=== PATIENT | female | born 1955 | race Caucasian/White ===

== ENCOUNTER 2018-05-17 14:41 | Emergency (ER) | payer MEDICARE, OTHER ==
[2018-05-17 15:37] LABS: Basophils % (A) 0 %; Eosinophils # (A) 0.2 k/uL (0-0.7); Eosinophils % (A) 1 %; HCT 45.6 % (34.0-46.0); HGB 14.3 gm/dL (11.4-16.0); Lymphocytes # (A) 1.8 k/uL (1.0-4.8); Lymphocytes % (A) 14 %; MCH 29.8 pg (25.0-35.0); MCHC 31.4 g/dL (31.0-37.0); MCV 94.8 fL (80.0-100.0); Mean Platelet Volume 6.5; Monocytes # (A) 0.8 k/uL (0-1.0); Monocytes % (A) 6 %; Neutrophils # (A) 10.2 k/uL (1.3-7.7); Neutrophils % (A) 77 %; Platelet Count 368 k/uL (150-450); RBC 4.81 m/uL (3.80-5.40); RDW 13.9 % (11.5-15.5); WBC 13.2 k/uL (3.8-10.6)
--- NOTE | 2018-05-17 15:37 | ED ---
General Adult HPI - General Chief complaint: Abdominal Pain Stated complaint: side & back pain Time Seen by Provider: 05/17/18 15:02 Source: patient, RN notes reviewed Mode of arrival: ambulatory Limitations: no limitations - History of Present Illness Initial comments: Patient 62-year-old female with significant past medical history for COPD, hypertension, presented to the emergency room today with a chief complaint of bilateral lower rib pain over the last 3-4 days. Patient denies any injury or trauma to the areas. Denies any increased shortness of breath. She does admit that she began feeling some discomfort into the left side a few days ago now she feels that it's worse on the right. She states it's on the side of the rib area. She does not that it's worse with certain movements also she takes deep breath. Patient unsure if she got a blood thinner at home. Patient states she has not taken anything for pain other than Tylenol once the other day. She states she does not like to take pills. Patient denies any other associated symptoms or complaints. Patient denies any recent fever, chills, shortness of breath, chest pain, nausea or vomiting, numbness or tingling, dysuria or hematuria, constipation or diarrhea, headaches or visual changes, or any other complaints. - Related Data Home Medications Medication Instructions Recorded Confirmed Budesonide/Formoterol Fumarate 2 puff INHALATION RT-BID 05/17/18 05/17/18 [Symbicort 160-4.5 Mcg Inhaler] Diltiazem HCl [Cartia Xt] 240 mg PO DAILY 05/17/18 05/17/18 Ibuprofen [Motrin Ib] 200 - 400 mg PO Q6H PRN 05/17/18 05/17/18 Loratadine [Claritin] 10 mg PO DAILY 05/17/18 05/17/18 Ranitidine HCl [Zantac] 150 mg PO BID 05/17/18 05/17/18 Simvastin(Unknown Dose) 1 tab PO DAILY 05/17/18 05/17/18 Spironolactone [Aldactone] 25 mg PO DAILY 05/17/18 05/17/18 Tiotropium [place] [Spiriva] 1 cap INHALATION RT-DAILY 05/17/18 05/17/18 Allergies Allergy/AdvReac Type Severity Reaction Status Date / Time No Known Allergies Allergy Verified 05/17/18 15:43 Review of Systems ROS Statement: Those systems with pertinent positive or pertinent negative responses have been documented in the HPI. ROS Other: All systems not noted in ROS Statement are negative. Past Medical History Past Medical History: COPD, Hypertension History of Any Multi-Drug Resistant Organisms: MRSA MDRO Source:: Sputum Past Surgical History: No Surgical Hx Reported Past Psychological History: No Psychological Hx Reported Smoking Status: Former smoker Past Alcohol Use History: None Reported Past Drug Use History: None Reported General Exam - General Exam Comments Initial Comments: General: The patient is awake and alert, in no distress, and does not appear acutely ill. Eye: Pupils are equal, round and reactive to light, extra-ocular movements are intact. No nystagmus. There is normal conjunctiva bilaterally. No signs of icterus. Ears, nose, mouth and throat: There are moist mucous membranes and no oral lesions. Neck: The neck is supple, there is no tenderness or JVD. Cardiovascular: There is a regular rate and rhythm. No murmur, rub or gallop is appreciated. Respiratory: Lungs are clear to auscultation, respirations are non-labored, breath sounds are equal. No wheezes, stridor, rales, or rhonchi. Gastrointestinal: Soft, non-distended, non-tender abdomen without masses or organomegaly noted. There is no rebound or guarding present. No CVA tenderness. Musculoskeletal: Normal ROM. Patient does have tenderness to the bilateral lower ribs. No Step-off or deformity. Strength 5/5. Sensation intact. Pulses equal bilaterally 2+. Neurological: A&O x 3. CN II-XII intact, There are no obvious motor or sensory deficits. Coordination appears grossly intact. Speech is normal. Skin: Skin is warm and dry and no rashes or lesions are noted. Psychiatric: Cooperative, appropriate mood & affect, normal judgment. Limitations: no limitations Course Vital Signs 05/17/18 14:45 Temperature 98.9 F Pulse Rate 89 Respiratory 24 Rate Blood Pressure 139/84 O2 Sat by Pulse 92 L Oximetry EKG Findings - EKG Comments: EKG Findings:: EKG performed at 1537: Shows a sinus tachycardia 107 bpm. NM interval is 164. QRS is 78. QT/QTC 360/421. No acute changes Medical Decision Making - Medical Decision Making Patient's labs been reviewed. D-dimer was mildly elevated. CT of the chest was performed showing no evidence of a PE. Patient's CAT scan did reveal a old fracture of T11. Patient has been to a fall several months ago. Patient's pain to the lateral aspect of the left and right ribs is reproducible on palpation. It is felt to be musculoskeletal. Case discussed with her physician Dr. Cosme. At this time patient would like to discharge. Patient advised follow family doctor next 2 days. Advised return if any symptoms increase worsen. - Lab Data Result diagrams: 05/17/18 15:16 05/17/18 15:16 Lab Results 05/17/18 05/17/18 05/17/18 Range/Units 15:16 15:16 15:16 WBC 13.2 H (3.8-10.6) k/uL RBC 4.81 (3.80-5.40) m/uL Hgb 14.3 (11.4-16.0) gm/dL Hct 45.6 (34.0-46.0) % MCV 94.8 (80.0-100.0) fL MCH 29.8 (25.0-35.0) pg MCHC 31.4 (31.0-37.0) g/dL RDW 13.9 (11.5-15.5) % Plt Count 368 (150-450) k/uL Neutrophils % 77 % Lymphocytes % 14 % Monocytes % 6 % Eosinophils % 1 % Basophils % 0 % Neutrophils # 10.2 H (1.3-7.7) k/uL Lymphocytes # 1.8 (1.0-4.8) k/uL Monocytes # 0.8 (0-1.0) k/uL Eosinophils # 0.2 (0-0.7) k/uL Basophils # 0.0 (0-0.2) k/uL PT (9.0-12.0) sec INR (<1.2) APTT (22.0-30.0) sec D-Dimer (<0.60) mg/L FEU Sodium 140 (137-145) mmol/L Potassium 4.7 (3.5-5.1) mmol/L Chloride 102 (98-107) mmol/L Carbon Dioxide 23 (22-30) mmol/L Anion Gap 15 mmol/L BUN 18 H (7-17) mg/dL Creatinine 0.60 (0.52-1.04) mg/dL Est GFR (CKD-EPI)AfAm >90 (>60 ml/min/1.73 sqM) Est GFR (CKD-EPI)NonAf >90 (>60 ml/min/1.73 sqM) Glucose 97 (74-99) mg/dL Calcium 10.1 (8.4-10.2) mg/dL Total Bilirubin 0.4 (0.2-1.3) mg/dL AST 21 (14-36) U/L ALT 22 (9-52) U/L Alkaline Phosphatase 90 (38-126) U/L Total Creatine Kinase <20 L (30-135) U/L CK-MB (CK-2) <0.2 (0.0-2.4) ng/mL CK-MB (CK-2) Rel Index Troponin I <0.012 (0.000-0.034) ng/mL Total Protein 7.1 (6.3-8.2) g/dL Albumin 4.4 (3.5-5.0) g/dL 05/17/18 Range/Units 15:16 WBC (3.8-10.6) k/uL RBC (3.80-5.40) m/uL Hgb (11.4-16.0) gm/dL Hct (34.0-46.0) % MCV (80.0-100.0) fL MCH (25.0-35.0) pg MCHC (31.0-37.0) g/dL RDW (11.5-15.5) % Plt Count (150-450) k/uL Neutrophils % % Lymphocytes % % Monocytes % % Eosinophils % % Basophils % % Neutrophils # (1.3-7.7) k/uL Lymphocytes # (1.0-4.8) k/uL Monocytes # (0-1.0) k/uL Eosinophils # (0-0.7) k/uL Basophils # (0-0.2) k/uL PT 9.8 (9.0-12.0) sec INR 1.0 (<1.2) APTT 23.5 (22.0-30.0) sec D-Dimer 0.79 H (<0.60) mg/L FEU Sodium (137-145) mmol/L Potassium (3.5-5.1) mmol/L Chloride (98-107) mmol/L Carbon Dioxide (22-30) mmol/L Anion Gap mmol/L BUN (7-17) mg/dL Creatinine (0.52-1.04) mg/dL Est GFR (CKD-EPI)AfAm (>60 ml/min/1.73 sqM) Est GFR (CKD-EPI)NonAf (>60 ml/min/1.73 sqM) Glucose (74-99) mg/dL Calcium (8.4-10.2) mg/dL Total Bilirubin (0.2-1.3) mg/dL AST (14-36) U/L ALT (9-52) U/L Alkaline Phosphatase (38-126) U/L Total Creatine Kinase (30-135) U/L CK-MB (CK-2) (0.0-2.4) ng/mL CK-MB (CK-2) Rel Index Troponin I (0.000-0.034) ng/mL Total Protein (6.3-8.2) g/dL Albumin (3.5-5.0) g/dL Disposition Clinical Impression: Rib pain Disposition: HOME SELF-CARE Condition: Good Instructions: Rib Contusion (ED) Additional Instructions: Please use medication as discussed. Please follow-up with family doctor in the next 2 days of symptoms have not improved. Please return to emergency room if the symptoms increase or worsen or for any other concerns. Is patient prescribed a controlled substance at d/c from ED?: No Referrals: None,Stated [Primary Care Provider] - 1-2 days Time of Disposition: 18:20
[2018-05-17 15:54] LABS: ALT 22 U/L (9-52); AST 21 U/L (14-36); Albumin 4.4 g/dL (3.5-5.0); Alkaline Phosphatase 90 U/L (38-126); Anion Gap 15 mmol/L; Blood Urea Nitrogen 18 mg/dL (7-17); Calcium 10.1 mg/dL (8.4-10.2); Carbon Dioxide 23 mmol/L (22-30); Chloride 102 mmol/L (98-107); Glucose 97 mg/dL (74-99); Partial Thromboplastin Time 23.5 sec (22.0-30.0); Potassium 4.7 mmol/L (3.5-5.1); Prothrombin Time 9.8 sec (9.0-12.0); Sodium 140 mmol/L (137-145); Total Bilirubin 0.4 mg/dL (0.2-1.3); Total Protein 7.1 g/dL (6.3-8.2)
[2018-05-17 15:58] LABS: Creatine Kinase <20 U/L (30-135); D-Dimer 0.79 mg/L FEU (<0.60)
--- NOTE | 2018-05-17 16:05 | XR ---
EXAMINATION TYPE: XR chest 2V DATE OF EXAM: 05/17/2018 COMPARISON: None HISTORY: 62-year-old female with back and chest pain and cough, rib pain TECHNIQUE: PA and lateral views FINDINGS: Heart normal size. Atherosclerotic arch calcifications. Vasculature within normal limits. Strandy ate lectasis at the right base. No consolidation or pleural effusion. Anterior wedging of a vertebral body near the thoracolumbar junction. IMPRESSION: 1. Strandy right basilar atelectasis. No acute cardiopulmonary process. 2. Age indeterminate anterior wedging of a vertebral body near the thoracolumbar junction. Correlate for any localizing pain here to assess chronicity of this vertebral body fracture..
[2018-05-17 16:11] LABS: Creatine Kinase MB <0.2 ng/mL (0.0-2.4); Troponin I <0.012 ng/mL (0.000-0.034)
--- NOTE | 2018-05-17 17:23 | CT ---
EXAMINATION TYPE: CT angio chest DATE OF EXAM: 05/17/2018 5:12 PM COMPARISON: NONE HISTORY: Back pain and elevated D-dimer. CT DLP: 406 mGycm Automated exposure control for dose reduction was used. CONTRAST: CTA scan of the thorax is performed with IV Contrast, patient injected with 66ml mL of Isovue 370, pu lmonary embolism protocol. There are 3-D post processed images.. FINDINGS: There is mild coarsening of interstitial markings in the left lower lobe. There is no evidence of a p ulmonary mass. There is no pleural effusion. Heart size is normal. There is no pericardial effusion. There are no hilar masses. There is no mediastinal adenopathy. There is normal contrast opacification of the pulmonary arteries. There are no filling defects. Thora cic aorta is intact. There is no evidence of aneurysm or dissection. There is mild atheromatous kwon e in the thoracic aorta. The bony thorax is intact. There is 5% depression of the superior endplate o f T11 that appears old. IMPRESSION: NO EVIDENCE OF PULMONARY EMBOLISM.
[2018-05-17 18:49] VITALS: BP 132/69; PULSE 101; RESP 16; TEMP 97.9
== END 2018-05-17 18:59 | disposition home or self-care (01) ==
LOC: EC 14:41
DX: R07.81 Pleurodynia (principal); R10.9 Unspecified abdominal pain; M54.9 Dorsalgia, unspecified; J44.9 Chronic obstructive pulmonary disease, unspecified; I10 Essential (primary) hypertension; Z86.14 Personal history of Methicillin resistant Staphylococcus aureus infection; Z87.891 Personal history of nicotine dependence; Z79.51 Long term (current) use of inhaled steroids; Z79.899 Other long term (current) drug therapy; Z87.81 Personal history of (healed) traumatic fracture
CPT/HCPCS: 36415; 93005; 85379; 80053; 82550; 82553; 84484; 85025; 85610; 85730; 71046; 71275; 99284; Q9967

== ENCOUNTER 2020-04-04 13:07 | Emergency (ER) | payer MEDICARE, OTHER ==
[2020-04-04 13:13] VITALS: BP 137/72; PULSE 96; RESP 18; TEMP 98.6
[2020-04-04] MEDS ORDERED: LIDOCAINE 1% INJ 10MG/ML (20 ML MDV) SQ ONE (13:43)
--- NOTE | 2020-04-04 13:52 | ED ---
Wound/Laceration HPI - General Chief Complaint: Wound/Laceration Stated Complaint: cut finger Time Seen by Provider: 04/04/20 13:17 Source: patient Mode of arrival: ambulatory Limitations: no limitations - History of Present Illness Initial Comments: 64-year-old female presenting today for chief complaint of left index finger injury. Patient states that she cut her finger while using a knife to cut up chicken. Patient states it would not stop bleeding she felt pressure and presented to the emergency department for evaluation. Patient is no additional complaints she does a weakness or decreased range of motion. Patient states her tetanus up-to-date. Patient has no additional complaints. Patient is hypoxic on arrival however she does normally use home oxygen. Patient denies any new shortness of breath or chest pain. - Related Data Home Medications Medication Instructions Recorded Confirmed Budesonide/Formoterol Fumarate 2 puff INHALATION RT-BID 05/17/18 05/17/18 [Symbicort 160-4.5 Mcg Inhaler] Diltiazem HCl [Cartia Xt] 240 mg PO DAILY 05/17/18 05/17/18 Ibuprofen [Motrin Ib] 200 - 400 mg PO Q6H PRN 05/17/18 05/17/18 Loratadine [Claritin] 10 mg PO DAILY 05/17/18 05/17/18 Ranitidine HCl [Zantac] 150 mg PO BID 05/17/18 05/17/18 Simvastin(Unknown Dose) 1 tab PO DAILY 05/17/18 05/17/18 Spironolactone [Aldactone] 25 mg PO DAILY 05/17/18 05/17/18 Tiotropium [place] [Spiriva] 1 cap INHALATION RT-DAILY 05/17/18 05/17/18 Previous Rx's Medication Instructions Recorded Cephalexin [Keflex] 500 mg PO Q8HR 3 Days #9 cap 04/04/20 Allergies Allergy/AdvReac Type Severity Reaction Status Date / Time No Known Allergies Allergy Verified 04/04/20 13:14 Review of Systems ROS Statement: Those systems with pertinent positive or pertinent negative responses have been documented in the HPI. ROS Other: All systems not noted in ROS Statement are negative. Past Medical History Past Medical History: COPD, Hypertension History of Any Multi-Drug Resistant Organisms: MRSA Date of last positivie culture/infection: 2017 MDRO Source:: Sputum Past Surgical History: No Surgical Hx Reported Past Psychological History: No Psychological Hx Reported Smoking Status: Former smoker Past Alcohol Use History: None Reported Past Drug Use History: None Reported General Exam - General Exam Comments Initial Comments: General: The patient is awake and alert, in no distress, and does not appear acutely ill. Eye: Pupils are equal, round and reactive to light, extra-ocular movements are intact. No nystagmus. There is normal conjunctiva bilaterally. No signs of icterus. Ears, nose, mouth and throat: There are moist mucous membranes and no oral lesions. Neck: The neck is supple, there is no tenderness or JVD. Cardiovascular: There is a regular rate and rhythm. No murmur, rub or gallop is appreciated. Respiratory: Lungs are clear to auscultation, respirations are non-labored, breath sounds are equal. No wheezes, stridor, rales, or rhonchi. Gastrointestinal: [Soft, non-distended, non-tender abdomen without masses or organomegaly noted. There is no rebound or guarding present. No CVA tenderness. Bowel sounds are unremarkable.] Musculoskeletal: Normal ROM, no tenderness. Strength 5/5. Sensation intact. Pulses equal bilaterally 2+. Neurological: A&O x 3. CN II-XII intact, There are no obvious motor or sensory deficits. Coordination appears grossly intact. Speech is normal. Skin: Skin is warm and dry and no rashes or lesions are noted. Psychiatric: Cooperative, appropriate mood & affect, normal judgment. Limitations: no limitations Course Vital Signs 04/04/20 13:09 Temperature 98.6 F Pulse Rate 96 Respiratory 18 Rate Blood Pressure 137/72 O2 Sat by Pulse 90 L Oximetry Procedures - Laceration Laceration #1 Consent Obtained: verbal consent Indication: laceration Site: other (left index finger) Size (cm): 2 Description: irregular Depth: simple, single layer Anesthetic Used: lidocaine 1% Anesthesia Technique: local infiltration Amount (mls): 2 Pre-repair: wound explored, irrigated extensively, deep structures intact Type of Sutures: nylon Size of Sutures: 5-0 Number of Sutures: 5 Technique: simple, interrupted, running Patient Tolerated Procedure: well, no complications Medical Decision Making - Medical Decision Making 64-year-old feel presenting today for chief complaint of left index finger laceration. Repaired after cleansing with iodine and irrigation. No evidence of tendon injury and is on the pad of the left index finger. Patient is able to fully range with full strength at the MCP DIP and PIP joints. X-ray revealed no fracture or retained foreign body. Patient tetanus UTD in last 10 years. Patient does have history of hypoxia. with concern for poor perfusion of digit due to chronic condition pt will be prescribed 3 days of prophlyactic antibiotics. Signs of infection, timely removal and care discussed patient discharged appearing well after discussing the case with Dr. Kwan. Disposition Clinical Impression: Finger laceration, Laceration of left index finger Disposition: HOME SELF-CARE Condition: Good Instructions (If sedation given, give patient instructions): Care For Your Stitches (ED), Laceration (ED) Additional Instructions: Please use medication as discussed. Please return for suture removal in 7-10 days. Please monitor for signs of infection as discussed, redness, drainage, increasing pain. Take preventative antibiotics as discussed. Please return to emergency room if the symptoms increase or worsen or for any other concerns. Prescriptions: Cephalexin [Keflex] 500 mg PO Q8HR 3 Days #9 cap Is patient prescribed a controlled substance at d/c from ED?: No Referrals: Win Mosley MD [Primary Care Provider] - 1-2 days Time of Disposition: 14:25
--- NOTE | 2020-04-04 14:14 | XR ---
EXAMINATION TYPE: XR finger LT , 3 VIEWS DATE OF EXAM ORDERED: 04/04/2020 HISTORY: laceration. COMPARISON: None. FINDINGS: No fracture, dislocation or radiopaque foreign body is seen. IMPRESSION: NO ACUTE OSSEOUS LESION.
== END 2020-04-04 14:35 | disposition home or self-care (01) ==
LOC: EC 13:07
DX: S61.211A Laceration without foreign body of left index finger without damage to nail, initial encounter (principal); J44.9 Chronic obstructive pulmonary disease, unspecified; I10 Essential (primary) hypertension; Z79.51 Long term (current) use of inhaled steroids; Z79.899 Other long term (current) drug therapy; Z86.14 Personal history of Methicillin resistant Staphylococcus aureus infection; Z99.81 Dependence on supplemental oxygen; W26.0XXA Contact with knife, initial encounter; Y93.89 Activity, other specified
CPT/HCPCS: 73140; 99283; 12001; J2001

== ENCOUNTER 2020-07-27 17:02 | Inpatient (IN) | payer MEDICARE, OTHER ==
[2020-07-27] MEDS ORDERED: methylPREDNISolone SOD SUCCI 125 MG/2 ML VIAL IV STA (17:43)
[2020-07-27] MEDS ORDERED: ALBUTEROL NEBULIZED 2.5 MG/3 ML INHALATION STA (17:43)
[2020-07-27] MEDS ORDERED: MAGNESIUM SULFATE-D5W PMX 1 GM in DEXTROSE/WATER 1 100ML.BAG IVPB STA (17:43)
[2020-07-27] MEDS ORDERED: IPRATROPIUM-ALBUTEROL 3 ML NEB INHALATION STA (17:43)
[2020-07-27 17:59] LABS: Basophils # (A) 0.1 k/uL (0-0.2); Basophils % (A) 1 %; Eosinophils # (A) 0.1 k/uL (0-0.7); Eosinophils % (A) 1 %; HCT 46.2 % (34.0-46.0); HGB 14.5 gm/dL (11.4-16.0); Lymphocytes # (A) 1.4 k/uL (1.0-4.8); Lymphocytes % (A) 11 %; MCH 29.7 pg (25.0-35.0); MCHC 31.3 g/dL (31.0-37.0); MCV 94.9 fL (80.0-100.0); Mean Platelet Volume 7.1; Monocytes # (A) 0.9 k/uL (0-1.0); Monocytes % (A) 7 %; Neutrophils # (A) 9.9 k/uL (1.3-7.7); Neutrophils % (A) 78 %; Platelet Count 378 k/uL (150-450); RBC 4.87 m/uL (3.80-5.40); RDW 13.3 % (11.5-15.5); WBC 12.7 k/uL (3.8-10.6)
--- NOTE | 2020-07-27 18:09 | ED ---
SOB HPI - General Chief Complaint: Shortness of Breath Stated Complaint: COPD Time Seen by Provider: 07/27/20 17:25 Source: patient Mode of arrival: ambulatory Limitations: no limitations - History of Present Illness Initial Comments: 65-year-old female past medical history of COPD on 2 L home O2 at all times presents emergency room with reported shortness of breath. Reports that her breathing gets bad on her when the seasons change. She has had shortness of breath for the past week. Also admits to nonproductive cough. No fevers or chills. No sick contacts with similar symptoms. Denies any chest pain. No history of heart failure. Denies any lower extremity swelling. No calf pain. No recent travel. No history of DVT or PE. She sees Dr. Norris from pulmonology. Reports has been significant. Time since her last use of steroids. Patient has never required intubation. Denies any abdominal pain. No nausea or vomiting. Has been using her inhalers as directed. Does not use her rescue inhaler. No other alleviating, Perceptin or modifying factors - Related Data Home Medications Medication Instructions Recorded Confirmed Budesonide/Formoterol Fumarate 2 puff INHALATION RT-BID 05/17/18 07/27/20 [Symbicort 160-4.5 Mcg Inhaler] Tiotropium [place] [Spiriva] 1 cap INHALATION RT-DAILY 05/17/18 07/27/20 Albuterol Sulfate [Ventolin HFA] 2 puff INHALATION RT-Q4H PRN 07/27/20 07/27/20 Escitalopram [Lexapro] 10 mg PO DAILY 07/27/20 07/27/20 Previous Rx's Medication Instructions Recorded Metoprolol Succinate (ER) [Toprol 25 mg PO DAILY #30 tab.er.24h 07/30/20 XL] lisinopriL [Zestril] 5 mg PO DAILY #30 tab 07/30/20 predniSONE 0 mg PO DIRECTED #30 tab 07/30/20 Allergies Allergy/AdvReac Type Severity Reaction Status Date / Time No Known Allergies Allergy Verified 07/27/20 22:51 Review of Systems ROS Statement: Those systems with pertinent positive or pertinent negative responses have been documented in the HPI. ROS Other: All systems not noted in ROS Statement are negative. Past Medical History Past Medical History: COPD, Hypertension History of Any Multi-Drug Resistant Organisms: MRSA Date of last positivie culture/infection: 2018 MDRO Source:: Sputum Past Surgical History: No Surgical Hx Reported Past Psychological History: No Psychological Hx Reported Smoking Status: Current every day smoker Past Alcohol Use History: None Reported Past Drug Use History: None Reported General Exam Limitations: no limitations General appearance: alert, in no apparent distress Head exam: Present: atraumatic, normocephalic, normal inspection Eye exam: Present: normal appearance, PERRL, EOMI. Absent: scleral icterus, conjunctival injection, periorbital swelling ENT exam: Present: normal exam, mucous membranes moist Neck exam: Present: normal inspection. Absent: tenderness, meningismus, lymphadenopathy Respiratory exam: Present: wheezes, accessory muscle use, decreased breath sounds, other (mildly tachypneic). Absent: respiratory distress, rales, rhonchi, stridor Cardiovascular Exam: Present: normal rhythm, tachycardia, normal heart sounds. Absent: systolic murmur, diastolic murmur, rubs, gallop, clicks GI/Abdominal exam: Present: soft, normal bowel sounds. Absent: distended, tenderness, guarding, rebound, rigid Extremities exam: Present: normal inspection, full ROM, normal capillary refill. Absent: tenderness, pedal edema, joint swelling, calf tenderness Back exam: Present: normal inspection Neurological exam: Present: alert, oriented X3, CN II-XII intact Psychiatric exam: Present: normal affect, normal mood Skin exam: Present: warm, dry, intact, normal color. Absent: rash Course Vital Signs 07/27/20 07/27/20 07/27/20 17:26 18:01 18:23 Temperature 98.3 F Pulse Rate 101 H 100 102 H Pulse Rate [ Pulse Oximetery ] Respiratory 18 Rate Blood Pressure 111/66 Blood Pressure [Left Arm Sitting] O2 Sat by Pulse 88 L Oximetry 07/27/20 07/27/20 18:43 20:38 Temperature 98.5 F Pulse Rate 101 H Pulse Rate [ 100 Pulse Oximetery ] Respiratory 24 22 Rate Blood Pressure 113/71 Blood Pressure 119/78 [Left Arm Sitting] O2 Sat by Pulse 90 L 90 L Oximetry Medical Decision Making - Medical Decision Making Upon arrival patient was placed into room 5. Erythromycin physical exam is performed. Patient is requiring 3 L of oxygen at this time to maintain sats around 92%. Peripheral IV is established. Patient does have diminished breath sounds. She is given a DuoNeb breathing treatment followed by an albuterol breathing treatment. She is also given a gram of magnesium 125 mg of Solu- Medrol. Chest x-rays performed. Laboratory studies were conducted. Lab studies are remarkable for white count of 12.7. Sodium mildly low at 132. Troponin is 0.026. BNP elevated at 7000 180. Chest x-ray does demonstrate trace effusions a patchy right basilar atelectasis and/or infiltrate. Results of the patient. Blood cultures are obtained. Patient is given a dose of antibiotics. Also provided the patient with 40 g of Lasix. Recommended hospital admission. Patient agreed to this. Discussed case Dr. Wilkerson requested echo, pulmonology and cardiac consultation. The patient was transferred to the floor in stable condition - Lab Data Result diagrams: 07/28/20 06:21 07/29/20 06:33 Lab Results 07/27/20 07/27/20 07/27/20 Range/Units 17:45 17:45 17:45 WBC 12.7 H (3.8-10.6) k/uL RBC 4.87 (3.80-5.40) m/uL Hgb 14.5 (11.4-16.0) gm/dL Hct 46.2 H (34.0-46.0) % MCV 94.9 (80.0-100.0) fL MCH 29.7 (25.0-35.0) pg MCHC 31.3 (31.0-37.0) g/dL RDW 13.3 (11.5-15.5) % Plt Count 378 (150-450) k/uL Neutrophils % 78 % Lymphocytes % 11 % Monocytes % 7 % Eosinophils % 1 % Basophils % 1 % Neutrophils # 9.9 H (1.3-7.7) k/uL Lymphocytes # 1.4 (1.0-4.8) k/uL Monocytes # 0.9 (0-1.0) k/uL Eosinophils # 0.1 (0-0.7) k/uL Basophils # 0.1 (0-0.2) k/uL PT 10.3 (9.0-12.0) sec INR 1.0 (<1.2) APTT 25.0 (22.0-30.0) sec Sodium 132 L (137-145) mmol/L Potassium 4.9 (3.5-5.1) mmol/L Chloride 96 L (98-107) mmol/L Carbon Dioxide 21 L (22-30) mmol/L Anion Gap 15 mmol/L BUN 13 (7-17) mg/dL Creatinine 0.62 (0.52-1.04) mg/dL Est GFR (CKD-EPI)AfAm >90 (>60 ml/min/1.73 sqM) Est GFR (CKD-EPI)NonAf >90 (>60 ml/min/1.73 sqM) Glucose 94 (74-99) mg/dL Plasma Lactic Acid [place] (0.7-2.0) mmol/L Calcium 9.5 (8.4-10.2) mg/dL Total Bilirubin 0.7 (0.2-1.3) mg/dL AST 25 (14-36) U/L ALT 18 (4-34) U/L Alkaline Phosphatase 91 (38-126) U/L Troponin I (0.000-0.034) ng/mL NT-Pro-B Natriuret Pep pg/mL Total Protein 6.7 (6.3-8.2) g/dL Albumin 3.8 (3.5-5.0) g/dL 07/27/20 07/27/20 07/27/20 Range/Units 17:45 17:45 17:45 WBC (3.8-10.6) k/uL RBC (3.80-5.40) m/uL Hgb (11.4-16.0) gm/dL Hct (34.0-46.0) % MCV (80.0-100.0) fL MCH (25.0-35.0) pg MCHC (31.0-37.0) g/dL RDW (11.5-15.5) % Plt Count (150-450) k/uL Neutrophils % % Lymphocytes % % Monocytes % % Eosinophils % % Basophils % % Neutrophils # (1.3-7.7) k/uL Lymphocytes # (1.0-4.8) k/uL Monocytes # (0-1.0) k/uL Eosinophils # (0-0.7) k/uL Basophils # (0-0.2) k/uL PT (9.0-12.0) sec INR (<1.2) APTT (22.0-30.0) sec Sodium (137-145) mmol/L Potassium (3.5-5.1) mmol/L Chloride (98-107) mmol/L Carbon Dioxide (22-30) mmol/L Anion Gap mmol/L BUN (7-17) mg/dL Creatinine (0.52-1.04) mg/dL Est GFR (CKD-EPI)AfAm (>60 ml/min/1.73 sqM) Est GFR (CKD-EPI)NonAf (>60 ml/min/1.73 sqM) Glucose (74-99) mg/dL Plasma Lactic Acid [place] 1.5 (0.7-2.0) mmol/L Calcium (8.4-10.2) mg/dL Total Bilirubin (0.2-1.3) mg/dL AST (14-36) U/L ALT (4-34) U/L Alkaline Phosphatase (38-126) U/L Troponin I 0.026 (0.000-0.034) ng/mL NT-Pro-B Natriuret Pep 7180 pg/mL Total Protein (6.3-8.2) g/dL Albumin (3.5-5.0) g/dL - EKG Data EKG Comments: EKG deficit normal sinus rhythm with ventricular rate of 96. SC inteval 152. QRS 78. QTC of 432. No acute ST segment elevations or depressions concerning for ischemic changes. Significant baseline artifact Disposition Clinical Impression: Acute respiratory insufficiency, COPD (chronic obstructive pulmonary disease), CAP (community acquired pneumonia), Acute exacerbation of CHF (congestive heart failure) Disposition: ADMITTED IP TO THIS HOSP Condition: Good Is patient prescribed a controlled substance at d/c from ED?: No Decision to Admit Reason: Admit from EC Decision Date: 07/27/20 Decision Time: 20:06
[2020-07-27 18:29] LABS: Prothrombin Time 10.3 sec (9.0-12.0)
[2020-07-27 18:50] LABS: ALT 18 U/L (4-34); AST 25 U/L (14-36); African American GFR (CKD) >90 (>60 ml/min/1.73 sqM); Albumin 3.8 g/dL (3.5-5.0); Alkaline Phosphatase 91 U/L (38-126); Anion Gap 15 mmol/L; Blood Urea Nitrogen 13 mg/dL (7-17); Calcium 9.5 mg/dL (8.4-10.2); Carbon Dioxide 21 mmol/L (22-30); Chloride 96 mmol/L (98-107); Glucose 94 mg/dL (74-99); Non-African American GFR(CKD) >90 (>60 ml/min/1.73 sqM); Potassium 4.9 mmol/L (3.5-5.1); Sodium 132 mmol/L (137-145); Total Bilirubin 0.7 mg/dL (0.2-1.3); Total Protein 6.7 g/dL (6.3-8.2)
--- NOTE | 2020-07-27 19:01 | XR ---
EXAMINATION TYPE: XR chest 2V DATE OF EXAM: 07/27/2020 COMPARISON: 05/17/2018 HISTORY: 65-year-old female with shortness of breath, difficulty breathing TECHNIQUE: AP and lateral views FINDINGS: Heart is overall normal size. Atherosclerotic arch calcifications. Hyperinflation. Trace effusions. P atchy right basilar opacity. IMPRESSION: Trace effusions and patchy right basilar atelectasis and/or infiltrate. Correlate for underlying pneu monia or possible mild CHF as the etiology.
[2020-07-27] MEDS ORDERED: cefTRIAXone IN SWFI 1,000 MG/10 ML SYRINGE IVP STA (20:02)
[2020-07-27] MEDS ORDERED: AZITHROMYCIN 500 MG in SODIUM CHLORIDE 0.9% 250 ML IVPB STA (20:03)
[2020-07-27] MEDS ORDERED: FUROSEMIDE 10 MG/ML 4 ML VIAL IV STA (20:05)
[2020-07-27] MEDS ORDERED: NALOXONE 0.4 MG/ML 1 ML VIAL IV PRN (20:07)
[2020-07-27] MEDS ORDERED: IPRATROPIUM-ALBUTEROL 3 ML NEB INHALATION PRN (20:40)
[2020-07-28] MEDS ORDERED: IPRATROPIUM-ALBUTEROL 3 ML NEB INHALATION SCH
[2020-07-28] MEDS: methylPREDNISolone SOD SUCCI 40 MG/ML 1 ML VIAL IV SCH ×3 (00:27→17:48)
[2020-07-28 06:20] LABS: Glucose,Whole Blood 168 mg/dL (75-99)
[2020-07-28 07:17] LABS: Basophils % (A) 0 %; Eosinophils % (A) 0 %; HCT 45.3 % (34.0-46.0); HGB 14.1 gm/dL (11.4-16.0); Lymphocytes # (A) 0.4 k/uL (1.0-4.8); Lymphocytes % (A) 6 %; MCH 29.8 pg (25.0-35.0); MCHC 31.1 g/dL (31.0-37.0); Mean Platelet Volume 7.3; Monocytes # (A) 0.2 k/uL (0-1.0); Monocytes % (A) 3 %; Neutrophils # (A) 6.9 k/uL (1.3-7.7); Neutrophils % (A) 90 %; Platelet Count 338 k/uL (150-450); RBC 4.72 m/uL (3.80-5.40); RDW 13.2 % (11.5-15.5); WBC 7.6 k/uL (3.8-10.6)
[2020-07-28 07:36] LABS: Chloride 95 mmol/L (98-107); Glucose 168 mg/dL (74-99); Potassium 4.9 mmol/L (3.5-5.1)
[2020-07-28 07:37] LABS: African American GFR (CKD) >90 (>60 ml/min/1.73 sqM); Anion Gap 15 mmol/L; Blood Urea Nitrogen 21 mg/dL (7-17); Calcium 9.1 mg/dL (8.4-10.2); Carbon Dioxide 22 mmol/L (22-30); Non-African American GFR(CKD) >90 (>60 ml/min/1.73 sqM); Sodium 132 mmol/L (137-145)
[2020-07-28] MEDS: IPRATROPIUM-ALBUTEROL 3 ML NEB INHALATION SCH ×4 (08:22→20:20)
[2020-07-28] MEDS ORDERED: DILTIAZEM CD 240 MG CAP.ER.24H PO SCH (09:30)
--- NOTE | 2020-07-28 10:48 | ECHOF ---
Referral Reason:new onset heart failure MEASUREMENTS -------- HEIGHT: 157.5 cm WEIGHT: 56.2 kg BP: RVIDd: 2.4 cm (< 3.3) IVSd: 0.8 cm (0.6 - 1.1) LVIDd: 4.2 cm (3.9 - 5.3) LVPWd: 0.8 cm (0.6 - 1.1) IVSs: 1.1 cm LVIDs: 2.6 cm LVPWs: 1.2 cm LA Diam: 4.2 cm (2.7 - 3.8) LAESV Index (A-L): 19.57 ml/m Ao Diam: 2.6 cm (2.0 - 3.7) AV Cusp: 1.1 cm (1.5 - 2.6) MV EXCURSION: 16.920 mm (> 18.000) MV EF SLOPE: 119 mm/s (70 - 150) EPSS: 0.7 cm MV E José: 0.56 m/s MV DecT: 203 ms MV A José: 0.80 m/s MV E/A Ratio: 0.70 AV maxP.61 mmHg AV meanP.56 mmHg RAP: 10.00 mmHg RVSP: 73.06 mmHg FINDINGS -------- Undetermined rhythm. This was a technically good study. Left ventricular wall thickness is normal. There is moderate global hypokinesis of LV . Overall l eft ventricular systolic function is severely impaired with, an EF between 25 - 30 %. Mid anterior LV wall motion is hypokinetic. Mid lateral LV wall motion is hypokinetic. Mid inferior LV wall motion is hypokinetic. Apical anterior LV wall motion is normal. Apical lateral LV wall motion i s normal. Apical inferior LV wall motion is hypokinetic. Apical septum LV wall motion is hypokin etic. The right ventricle is normal in size. The left atrium is mildly dilated. The right atrial size is normal. There is mild aortic stenosis present. Peak/mean gradient across the Aortic Valve is 15.61mmHg / 7. 56mmHg. Mild mitral regurgitation is present. Mild tricuspid regurgitation present. There is moderate to severe pulmonary hypertension. There is no pulmonic regurgitation present. The aortic root size is normal. There is no pericardial effusion. CONCLUSIONS -------- 1. Left ventricular wall thickness is normal. 2. There is moderate global hypokinesis of LV . 3. Overall left ventricular systolic function is severely impaired with, an EF between 25 - 30 %. 4. Mid anterior LV wall motion is hypokinetic. 5. Mid lateral LV wall motion is hypokinetic. 6. Mid inferior LV wall motion is hypokinetic. 7. Apical anterior LV wall motion is normal. 8. Apical lateral LV wall motion is normal. 9. Apical inferior LV wall motion is hypokinetic. 10. Apical septum LV wall motion is hypokinetic. 11. The right ventricle is normal in size. 12. The left atrium is mildly dilated. 13. The right atrial size is normal. 14. There is mild aortic stenosis present. 15. Peak/mean gradient across the Aortic Valve is 15.61mmHg / 7.56mmHg. 16. Mild mitral regurgitation is present. 17. Mild tricuspid regurgitation present. 18. There is moderate to severe pulmonary hypertension. 19. There is no pericardial effusion. ACTIVITY SPECIALIST: Indy Sorto RDCS
--- NOTE | 2020-07-28 11:47 | P.HPIM ---
History of Present Illness H&P Date: 07/28/20 HISTORY OF PRESENT ILLNESS This is a 65-year-old female patient of Dr. Mosley and Dr. Norris with past medical history of COPD, chronic hypoxic respiratory failure with home O2, hypertension, remote history of tobacco use and dependence. Patient complains of increasing shortness of breath for the past week with nonproductive cough. She denies having any fever or chills. She denies having any chest pain. No lower extremity edema. No recent travel. She states her last hospitalization for COPD exacerbation was about one year ago. Patient presented to [facility] emergency center. Patient was afebrile, heart rate 101, blood pressure 111/66, pulse ox 88% on 2 L nasal cannula. Blood work revealed WBC 12.7, hemoglobin 14.5. Sodium 132, potassium 4.9, chloride 96, CO2 21, BUN 13 and creatinine 0.62, blood sugar 94. Liver function tests were normal, lactic acid 1.5, troponin 0.026 and proBNP 7180. EKG was a sinus rhythm at rate of [address] changes. Chest x-ray reveals trace effusions and patchy right basilar atelectasis and/or infiltrate. Correlate for underlying pneumonia or possible mild heart failure. Echocardio gram reveals moderate global hypokinesia of the LV, EF 25-30%, mild aortic stenosis with gradient of 15.61 mmHg, mild mitral regurgitation, mild tricuspid regurgitation, moderate to severe pulmonary hypertension. Repeat troponin 0.019 and 0.015. Patient admitted to the cardiac stepdown unit and consult requested with pulmonary medicine and cardiology. REVIEW OF SYSTEMS Constitutional: No fever, no chills, no night sweats. No weight change. Reports weakness, fatigue or lethargy. No daytime sleepiness. EENT: No headache. No blurred vision or double vision, no loss of vision. No loss of Hearing, no ringing in the ears, no dizziness. No nasal drainage or congestion. No epistaxis. No sore throat. Lungs: Reports shortness of breath, reports cough, no sputum production. Reports wheezing. Dyspnea with exertion. Cardiovascular: No chest pain, no lower extremity edema. No palpitations. No paroxysmal nocturnal dyspnea. Reports orthopnea. No lightheadedness or dizziness. No syncopal episodes. Abdominal: No abdominal pain. No nausea, vomiting. No diarrhea. No constipation. No bloody or tarry stools.. No loss of appetite. Genitourinary: No dysuria, increased frequency, urgency. No urinary retention. Musculoskeletal: No myalgias. Reports muscle weakness, no gait dysfunction, no frequent falls. No back pain. No neck pain. Integumentary: No wounds, no lesions. No rash or pruritus. No unusual bruising. No change in hair or nails. Neurologic: No aphasia. No facial droop. No change in mentation. No head injury. No headache. No paralysis. No paresthesia. Psychiatric: No depression. No anxiety. No mood swings. Endocrine: No abnormal blood sugars. No weight change. No excessive sweating or thirst. No cold intolerance. SOCIAL HISTORY The patient was a smoker one and half to 2 packs per day for 20 years and quit 25 years ago. She denies any alcohol use, marijuana use or illicit drug use. She is single and lives alone. She does not have a CPAP. She has a nebulizer and oxygen home. FAMILY HISTORY Mother in her 60s of unknown cause. Father in his 60s as well with atherosclerotic heart disease. Patient has 3 brothers and 2 have passed from alcohol and drug issues. No sisters. Patient's 4 children with no major medical problems. PHYSICAL EXAMINATION Gen: This is an 65-year-old female. Patient's last hematocrit. Dis tress. HEENT: Head is atraumatic, normocephalic. Pupils equal, round. Sclerae is anicteric. NECK: Supple. No JVD. No lymphadenopathy. No thyromegaly. LUNGS: Diminished bilaterally with expiratory wheezesi. No intercostal retractions. HEART: Regular rate and rhythm. No murmur. ABDOMEN: Soft. Bowel sounds are present. No masses. No tenderness. EXTREMITIES: No pedal edema. No calf tenderness. Dorsalis pedis +2 bilaterally. NEUROLOGICAL: Patient is awake, alert and oriented x3. Cranial nerves 2 through 12 are grossly intact. ASSESSMENT AND PLAN 1. Acute on chronic hypoxic respiratory failure secondary to a combination of acute exacerbation of COPD and acute systolic heart failure, new onset. Consults with cardiology and pulmonary medicine. 2. Acute exacerbation of COPD. Continue DuoNeb treatments 4 times daily and every 2 hours as needed, Symbicort twice daily, Solu-Medrol 40 mg IV every 8 hours. Patient did receive one dose each of Zithromax and ceftriaxone. Consult with pulmonary medicine. 3. Acute systolic heart failure. Patient received 1 dose of IV Lasix 40 mg in the ER. Monitor I&O, daily weights, electrolytes and renal function. 4. Hypertension. Continue Cardizem CD 240 mg daily. 5. Hypomagnesemia. Status post replacement. 6. Chronic hypoxic respiratory failure on home O2 at 2 L nasal cannula. 7. Recurrent depression. Continue Lexapro 10 mg daily. 8. DVT prophylaxis. Heparin subcu. 9. GI prophylaxis. Protonix. Patient will be admitted to the hospital for a minimum of 2 night stay. Discharge plan: home Impression and plan of care have been directed as dictated by the signing physician. Adriana Mobley nurse practitioner acting as scribe for signing physician. Past Medical History Past Medical History: COPD, Hypertension History of Any Multi-Drug Resistant Organisms: MRSA Date of last positivie culture/infection: 2017 MDRO Source:: Sputum Past Surgical History: No Surgical Hx Reported Past Psychological History: No Psychological Hx Reported Smoking Status: Current every day smoker Past Alcohol Use History: None Reported Past Drug Use History: None Reported Medications and Allergies Home Medications Medication Instructions Recorded Confirmed Type Budesonide/Formoterol Fumarate 2 puff INHALATION RT-BID 05/17/18 07/27/20 History [Symbicort 160-4.5 Mcg Inhaler] Diltiazem HCl [Cartia Xt] 240 mg PO DAILY 05/17/18 07/27/20 History Tiotropium [place] [Spiriva] 1 cap INHALATION RT-DAILY 05/17/18 07/27/20 History Albuterol Sulfate [Ventolin HFA] 2 puff INHALATION RT-Q4H PRN 07/27/20 07/27/20 History Escitalopram [Lexapro] 10 mg PO DAILY 07/27/20 07/27/20 History Allergies Allergy/AdvReac Type Severity Reaction Status Date / Time No Known Allergies Allergy Verified 07/27/20 22:51 Physical Exam Vitals: Vital Signs Temp Pulse Pulse Resp BP BP Pulse Ox 07/28/20 08:31 100 07/28/20 08:24 98 07/28/20 08:00 96 16 132/72 93 L 07/28/20 04:00 98.1 F 90 22 124/82 92 L 07/28/20 00:00 98.2 F 92 22 108/76 93 L 07/27/20 20:38 98.5 F 100 22 119/78 90 L 07/27/20 18:43 101 H 24 113/71 90 L 07/27/20 18:23 102 H 07/27/20 18:01 100 07/27/20 17:26 98.3 F 101 H 18 111/66 88 L Intake and Output 07/27/20 07/28/20 07/28/20 22:59 06:59 14:59 Intake Total 370 0 Balance 370 0 Intake: Intake, IV Titration 250 Amount Azithromycin 500 mg In 250 Sodium Chloride 0.9% 250 ml @ 250 mls/hr IVPB ONCE STA Rx#:[id number] Oral 120 0 Other: Voiding Method Toilet # Voids 2 Weight 57.153 kg 56.4 kg Results CBC & Chem 7: 07/28/20 06:21 07/28/20 06:21 Labs: Abnormal Lab Results - Last 24 Hours (Table) 07/27/20 07/27/20 07/28/20 Range/Units 17:45 17:45 06:18 WBC 12.7 H (3.8-10.6) k/uL Hct 46.2 H (34.0-46.0) % Neutrophils # 9.9 H (1.3-7.7) k/uL Lymphocytes # (1.0-4.8) k/uL Sodium 132 L (137-145) mmol/L Chloride 96 L (98-107) mmol/L Carbon Dioxide 21 L (22-30) mmol/L BUN (7-17) mg/dL Glucose (74-99) mg/dL POC Glucose (mg/dL) 168 H (75-99) mg/dL 07/28/20 07/28/20 Range/Units 06:21 06:21 WBC (3.8-10.6) k/uL Hct (34.0-46.0) % Neutrophils # (1.3-7.7) k/uL Lymphocytes # 0.4 L (1.0-4.8) k/uL Sodium 132 L (137-145) mmol/L Chloride 95 L (98-107) mmol/L Carbon Dioxide (22-30) mmol/L BUN 21 H (7-17) mg/dL Glucose 168 H (74-99) mg/dL POC Glucose (mg/dL) (75-99) mg/dL Thrombosis Risk Factor Assmnt - Choose All That Apply Each Factor Represents 1 point: Abnormal pulmonary function (COPD), Serious lung disease incl. pneumonia (< 1month) Other Risk Factors: Yes Each Risk Factor Represents 2 Points: Age 61-74 years Other congenital or acquired thrombophilia - If yes, enter type in comment: No Thrombosis Risk Factor Assessment Total Risk Factor Score: 4 Thrombosis Risk Factor Assessment Level: Moderate Risk
--- NOTE | 2020-07-28 11:50 | P.CRDCN ---
History of Present Illness Consult date: 07/28/20 History of present illness: CHIEF COMPLAINT: Heart failure HISTORY OF PRESENT ILLNESS: 65-year-old female with a history of COPD and hypertension who presented to the emergency room secondary to shortness of breath. 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 Patient reports having shortness of breath over the last 2-3 days and states "My COPD is acting up". Patient denies chest pain or pressure. She denies any swelling in her lower extremities. Patient reports a history of palpitations many years ago and states "they were never able to figure out why I was having it". Patient reports home O2 use. She states she quit smoking 25 years ago after smoking 1-1/2-2 packs a day for 20 years. She reports she had a stress test a few years ago when she was living in [place] and believes it was negative. DIAGNOSTICS: EKG reveals sinus rhythm. Heart rate 96 Chest xray trace effusions and patchy right basilar atelectasis and/or infiltrate. Correlate for underlying pneumonia or possible mild CHF Laboratory data: WBC 7.6. Hemoglobin 14.1. Platelet count 338. Sodium 132. Potassium 4.9. BUN 21. Creatinine 0.62. BNP 7180. Troponin 0.026. 0.019. 0.015. Current home cardiac medications include Cardizem 240 mg daily REVIEW OF SYSTEMS: CONSTITUTIONAL: Denies fever or chills. HEENT: Denies blurred vision, vision changes, or eye pain. Denies hemoptysis CARDIOVASCULAR: Denies chest pain, orthopnea, PND. Reports history of palpitations RESPIRATORY: Reports shortness of breath. GASTROINTESTINAL: Denies abdominal pain. Denies nausea or vomiting. HEMATOLOGIC: Denies bleeding disorders. GENITOURINARY: Denies any blood in urine. SKIN: Denies pruitis. Denies rash. PHYSICAL EXAM: VITAL SIGNS: Reviewed. GENERAL: Well-developed in no acute distress. HEENT: Head is normocephalic. Pupils are equal, round. Sclerae anicteric. Mucous membranes of the mouth are moist. Neck supple. No JVD or thyromegaly LUNGS: Respirations even and unlabored. Lungs essentially clear to auscultation bilaterally. HEART: Regular rate and rhythm. S1 and S2 heard. + systolic murmur ABDOMEN: Soft. Nontender. EXTREMITIES: Normal range of motion. No clubbing or cyanosis. Peripheral pulses intact. No lower extremity edema NEUROLOGIC: Awake and alert. Oriented x 3. ASSESSMENT: Acute exacerbation of COPD Possible congestive heart failure, BNP 7180, clinically appears euvolemic Hypertension History of palpitations History of nicotine dependence PLAN: Hold off on any lasix at this time as patient appears euvolemic Obtain 2D echo to assess cardiac structure and function Further recommendations pending patient course Nurse practitioner note has been reviewed by physician. Signing provider agrees with the documented findings, assessment, and plan of care. Past Medical History Past Medical History: COPD, Hypertension History of Any Multi-Drug Resistant Organisms: MRSA Date of last positivie culture/infection: 2017 MDRO Source:: Sputum Past Surgical History: No Surgical Hx Reported Past Psychological History: No Psychological Hx Reported Smoking Status: Current every day smoker Past Alcohol Use History: None Reported Past Drug Use History: None Reported Medications and Allergies Home Medications Medication Instructions Recorded Confirmed Type Budesonide/Formoterol Fumarate 2 puff INHALATION RT-BID 05/17/18 07/27/20 History [Symbicort 160-4.5 Mcg Inhaler] Diltiazem HCl [Cartia Xt] 240 mg PO DAILY 05/17/18 07/27/20 History Tiotropium [place] [Spiriva] 1 cap INHALATION RT-DAILY 05/17/18 07/27/20 History Albuterol Sulfate [Ventolin HFA] 2 puff INHALATION RT-Q4H PRN 07/27/20 07/27/20 History Escitalopram [Lexapro] 10 mg PO DAILY 07/27/20 07/27/20 History Allergies Allergy/AdvReac Type Severity Reaction Status Date / Time No Known Allergies Allergy Verified 07/27/20 22:51 Physical Exam Vitals: Vital Signs Temp Pulse Pulse Resp BP BP Pulse Ox 07/28/20 11:26 96 07/28/20 08:31 100 07/28/20 08:24 98 07/28/20 08:00 96 16 132/72 93 L 07/28/20 04:00 98.1 F 90 22 124/82 92 L 07/28/20 00:00 98.2 F 92 22 108/76 93 L 07/27/20 20:38 98.5 F 100 22 119/78 90 L 07/27/20 18:43 101 H 24 113/71 90 L 07/27/20 18:23 102 H 07/27/20 18:01 100 07/27/20 17:26 98.3 F 101 H 18 111/66 88 L Intake and Output 07/27/20 07/28/20 07/28/20 22:59 06:59 14:59 Intake Total 370 0 Balance 370 0 Intake: Intake, IV Titration 250 Amount Azithromycin 500 mg In 250 Sodium Chloride 0.9% 250 ml @ 250 mls/hr IVPB ONCE STA Rx#:[id number] Oral 120 0 Other: Voiding Method Toilet # Voids 2 Weight 57.153 kg 56.4 kg Results 07/28/20 06:21 07/28/20 06:21 Cardiac Enzymes 07/27/20 07/27/20 07/27/20 Range/Units 17:45 17:45 22:26 AST 25 (14-36) U/L Troponin I 0.026 0.019 (0.000-0.034) ng/mL 07/28/20 Range/Units 00:21 AST (14-36) U/L Troponin I 0.015 (0.000-0.034) ng/mL Coagulation 07/27/20 Range/Units 17:45 PT 10.3 (9.0-12.0) sec APTT 25.0 (22.0-30.0) sec CBC 07/27/20 07/28/20 Range/Units 17:45 06:21 WBC 12.7 H 7.6 (3.8-10.6) k/uL RBC 4.87 4.72 (3.80-5.40) m/uL Hgb 14.5 14.1 (11.4-16.0) gm/dL Hct 46.2 H 45.3 (34.0-46.0) % Plt Count 378 338 (150-450) k/uL Comprehensive Metabolic Panel 07/27/20 07/28/20 Range/Units 17:45 06:21 Sodium 132 L 132 L (137-145) mmol/L Potassium 4.9 4.9 (3.5-5.1) mmol/L Chloride 96 L 95 L (98-107) mmol/L Carbon Dioxide 21 L 22 (22-30) mmol/L BUN 13 21 H (7-17) mg/dL Creatinine 0.62 0.62 (0.52-1.04) mg/dL Glucose 94 168 H (74-99) mg/dL Calcium 9.5 9.1 (8.4-10.2) mg/dL AST 25 (14-36) U/L ALT 18 (4-34) U/L Alkaline Phosphatase 91 (38-126) U/L Total Protein 6.7 (6.3-8.2) g/dL Albumin 3.8 (3.5-5.0) g/dL Current Medications Generic Name Dose Route Start Last Admin Trade Name Freq PRN Reason Stop Dose Admin Albuterol/Ipratropium 3 ml 07/28/20 08:00 07/28/20 11:25 Duoneb 0.5 Mg-3 Mg/3 Ml Soln INHALATION 3 ml RT-QID KODY Administration Albuterol/Ipratropium 3 ml 07/27/20 20:40 Duoneb 0.5 Mg-3 Mg/3 Ml Soln INHALATION RT-Q2H PRN Shortness Of Breath Or Wheezing Budesonide/Formoterol Fumarate 2 puff 07/28/20 20:00 Symbicort 160-4.5 Mcg Inhaler INHALATION RT-BID [facility] Diltiazem HCl 240 mg 07/28/20 09:30 Cardizem Cd PO DAILY [facility] Escitalopram Oxalate 10 mg 07/28/20 09:30 Lexapro PO DAILY [facility] Insulin Aspart 0 unit 07/28/20 12:30 Novolog SQ ACHS [facility] Protocol Methylprednisolone Sodium Succinate 40 mg 07/28/20 00:00 07/28/20 08:25 Solu-Medrol IV 40 mg Q8HR KODY Administration Naloxone HCl 0.2 mg 07/27/20 20:07 Narcan IV Q2M PRN Opioid Reversal Intake and Output 07/27/20 07/28/20 07/28/20 22:59 06:59 14:59 Intake Total 370 0 Balance 370 0 Intake: Intake, IV Titration 250 Amount Azithromycin 500 mg In 250 Sodium Chloride 0.9% 250 ml @ 250 mls/hr IVPB ONCE STA Rx#:[id number] Oral 120 0 Other: Voiding Method Toilet # Voids 2 Weight 57.153 kg 56.4 kg 07/28/20 06:21 07/28/20 06:21
[2020-07-28 12:17] LABS: Glucose,Whole Blood 144 mg/dL (75-99)
[2020-07-28] MEDS: INSULIN ASPART (NovoLOG) 100 UNIT/ML VIAL SQ SCH ×3 (13:12→21:48)
[2020-07-28] MEDS: ESCITALOPRAM 10 MG TAB PO SCH (13:13)
--- NOTE | 2020-07-28 17:31 | CONS ---
CONSULTATION PULMONARY/CRITICAL CARE CONSULTATION: DATE OF SERVICE: 07/28/2020 REASON FOR CONSULTATION: Shortness of breath This is a 65-year-old female with a history of underlying COPD. She apparently recently started seeing Dr. Mosley as a primary and seen my partner Dr. Norris for her lungs. She tells me, that she has 20% lung function left. She is on home O2 at 2 L/minute 12/06. She apparently presents to the emergency room complaining of shortness of breath. The shortness of breath has been going on for a couple days and getting worse. She relates that it to the change in seasons. In addition, she admits to a cough which is mostly nonproductive. She denies any wheezing. She denies any chest tightness or chest pain. She also denies any fever or chills. The patient denies a history of underlying cardiac disease. Interestingly, her chest x-ray shows bilateral small effusions and she is currently being evaluated by Cardiology for potential CHF. From the pulmonary standpoint, she looks very stable. The patient apparently is feeling much better today than she did when she first came in. She has been using her medications as prescribed, which include Spiriva Handy haler, Symbicort, and albuterol. Other medications include Cardia XT and Lexapro. ALLERGIES: Denied. MEDICAL PROBLEM LIST: Includes hypertension and COPD. As mentioned, her COPD is apparently quite severe. She states she has 20% lung function left. She also has a prior history of MRSA infection in her sputum. SURGICAL HISTORY: Denied. SOCIAL HISTORY: Positive for ongoing tobacco use. She apparently states she only smoked for 17 or 20 years, but it seems unlikely given how bad her lung disease is. She denies any alcohol use or illicit drug use. FAMILY HISTORY: Noncontributory. REVIEW OF SYSTEMS: CONSTITUTIONAL: Negative. NEUROLOGIC: Negative. HEENT: Negative. CARDIOVASCULAR: Negative. PULMONARY: Shortness of breath, nonproductive cough. GI: Negative. : Negative. RHEUMATOLOGIC: Negative. IMMUNOLOGIC: Negative. ENDOCRINOLOGIC: Negative. DERMATOLOGIC: Negative. Current vital signs are reviewed. They include a temperature which is 98.1, heart rate which is 96, respiratory rate which is 16, a blood pressure which is 132/72 and a mean of 92 with saturations 93%-94% on 3 L. Appears in no acute distress. Sitting at the bedside. Does not have any evidence of conversational dyspnea, use of accessory muscles or audible wheezing. HEENT: Examination is grossly unremarkable. NECK: Supple. Full range of motion. No adenopathy. Neck veins are flat. CARDIOVASCULAR: Examination reveals regular rhythm and rate. Heart rate about 90 beats per minute. S1, S2 normal. No murmur. Heart sounds are distant. LUNGS: Reveal severely diminished breath sounds throughout. I do not hear much in way of wheezes, rhonchi, or crackles. Slight prolongation on forced maneuver. ABDOMEN: Soft, bowel sounds are heard. EXTREMITIES: Intact. No edema. SKIN: Without rash. NEUROLOGIC: Examination is brief but nonfocal. LAB DATA: Reviewed. White count 7.6, hemoglobin 14.1, hematocrit 45.3, platelet count 338,000. PT, INR and PTT all normal, sodium 132, potassium 4.9, chloride 95, CO2 is 22, anion gap is 15. BUN and creatinine were 21 and 0.62. Troponins are 0.026, 0.019, 0.015. Her N terminal proBNP was elevated at 7180. Microbiology is negative or pending. Chest x-ray shows findings that in my opinion are consistent with mild fluid overload with small bilateral pleural effusions. Echocardiogram reveals an ejection fraction between 25%-30%. There is moderate global hypokinesis. There is mild aortic stenosis, mild mitral regurgitation, mild tricuspid regurgitation and moderate to severe pulmonary hypertension without pericardial effusion. ASSESSMENT: 1. Shortness of breath, likely multifactorial, in part related to underlying severe COPD as well as heart failure with reduced ejection fraction (HFREF). 2. Severe COPD with 20% lung function remaining according to the patient. 3. History of long-standing hypertension. 4. Prior history of MRSA pulmonary infection. 5. Ongoing tobacco use with nicotine addiction. 6. Valvular heart disease. 7. Global hypokinesia with an ejection fraction between 20%-25%. PLAN: The patient from the pulmonary standpoint, is doing well. Her medications are reviewed. They are appropriate. Additional recommendations and suggestions are forthcoming. She is currently on Symbicort, Solu-Medrol, and albuterol/Atrovent updrafts. Will await Cardiology input. No additional recommendations are made. The patient will need to follow up with Dr. Mosley and my partner Dr. Timmy once discharged. Additional recommendations and suggestions are forthcoming. MMODL / IJN: [id number] /
[2020-07-28] MEDS: SYMBICORT 160-4.5 MCG INHALER INHALATION SCH (20:20)
[2020-07-28 20:38] LABS: Glucose,Whole Blood 207 mg/dL (75-99)
[2020-07-28] MEDS: HEPARIN SODIUM,PORCINE 5,000 UNIT/ML 1 ML VIAL SQ SCH (21:48)
[2020-07-29] MEDS: methylPREDNISolone SOD SUCCI 40 MG/ML 1 ML VIAL IV SCH ×3 (00:41→16:39)
[2020-07-29 06:13] LABS: Glucose,Whole Blood 202 mg/dL (75-99)
[2020-07-29] MEDS: PANTOPRAZOLE 40 MG TABLET PO SCH (06:31)
[2020-07-29] MEDS: INSULIN ASPART (NovoLOG) 100 UNIT/ML VIAL SQ SCH ×4 (06:31→20:49)
[2020-07-29 07:50] LABS: African American GFR (CKD) >90 (>60 ml/min/1.73 sqM); Anion Gap 9 mmol/L; Blood Urea Nitrogen 22 mg/dL (7-17); Calcium 9.2 mg/dL (8.4-10.2); Carbon Dioxide 29 mmol/L (22-30); Chloride 97 mmol/L (98-107); Glucose 185 mg/dL (74-99); Non-African American GFR(CKD) >90 (>60 ml/min/1.73 sqM); Potassium 4.4 mmol/L (3.5-5.1); Sodium 135 mmol/L (137-145)
[2020-07-29] MEDS ORDERED: NON FORMULARY DRUG (Tiotropium Bromide [Spiriva] 1 CAP) INHALATION SCH (08:00)
[2020-07-29] MEDS: HEPARIN SODIUM,PORCINE 5,000 UNIT/ML 1 ML VIAL SQ SCH ×2 (08:44→20:50)
[2020-07-29] MEDS: ESCITALOPRAM 10 MG TAB PO SCH (08:45)
[2020-07-29] MEDS ORDERED: METOPROLOL SUCCINATE (ER) 50 MG TAB.ER.24H PO SCH (09:00)
[2020-07-29] MEDS ORDERED: lisinopriL 10 MG TAB PO SCH (09:00)
[2020-07-29] MEDS: SYMBICORT 160-4.5 MCG INHALER INHALATION SCH ×2 (09:17→20:15)
[2020-07-29] MEDS: IPRATROPIUM-ALBUTEROL 3 ML NEB INHALATION SCH ×4 (09:17→20:15)
[2020-07-29] MEDS ORDERED: ALPRAZolam 0.25 MG TAB PO PRN (09:30)
[2020-07-29] MEDS ORDERED: ASPIRIN 325 MG TAB PO STA (09:30)
[2020-07-29] MEDS ORDERED: SODIUM CHLORIDE 0.9% 1,000 ML in EMPTY BAG 1 BAG IV ONE (09:30)
[2020-07-29] MEDS ORDERED: NITROGLYCERIN SL TABS 0.4 MG TAB SUBLINGUAL PRN (09:30)
[2020-07-29] MEDS ORDERED: ALPRAZolam 0.5 MG TAB PO PRN (09:30)
[2020-07-29] MEDS ORDERED: ATORVASTATIN 80 MG TAB PO STA (09:30)
[2020-07-29] MEDS ORDERED: VERAPAMIL 2.5 MG/ML 2 ML AMP ONE (10:14)
[2020-07-29] MEDS ORDERED: fentaNYL (PF) 50 MCG/ML 2 ML AMP ONE (10:14)
[2020-07-29] MEDS ORDERED: HEPARIN SODIUM 1,000 UN/ML (10ML VL) ONE (10:14)
[2020-07-29] MEDS ORDERED: LIDOCAINE 1% INJ 10MG/ML (20 ML MDV) ONE (10:14)
[2020-07-29] MEDS: MIDAZOLAM 2 MG/2 ML VIAL IV ONE ×2 (10:38→10:48)
[2020-07-29] MEDS ORDERED: LIDOCAINE 1% INJ 10MG/ML (20 ML MDV) SQ ONE (10:48)
[2020-07-29] MEDS ORDERED: fentaNYL (PF) 50 MCG/ML 2 ML AMP IV ONE (10:48)
[2020-07-29] MEDS ORDERED: IV FLUID CONTINUATION 1,000 ML IV ONE (10:50)
[2020-07-29] MEDS ORDERED: VERAPAMIL SYRINGE (5 MG/10 ML) INTRAARTER ONE (10:52)
[2020-07-29] MEDS ORDERED: IOPAMIDOL-370 125ML BTL INJ ONE (11:04)
[2020-07-29] MEDS ORDERED: IOPAMIDOL-370 50ML BTL INJ ONE (11:05)
[2020-07-29] MEDS ORDERED: RX INFO: IV CONTRAST WAS GIVEN 1 EACH MISC MISCELLANE PRN (11:20)
--- NOTE | 2020-07-29 11:20 | P.CARDCATH ---
Date of Procedure: 07/29/20 Description of Procedure: PROCEDURES PERFORMED: Left heart catheterization, bilateral coronary angiography INDICATION: New onset cardiomyopathy with ejection fraction 25-30%. HISTORY: Patient is a pleasant 65-year-old female with history of COPD and hypertension who presented with worsening shortness breath. She was found to have elevated proBNP and to be in heart failure. Echocardiogram showed new onset cardiomyopathy with ejection fraction 25-30%. CONSENT:I have discussed the risks, benefits and alternative therapies for the above-mentioned procedure and for both sedation/analgesia as well as necessary blood product administration, if indicated, as they pertain to this patient. The patient has indicated understanding and acceptance of the risks and procedures discussed. PROCEDURE: After the risks, benefits and alternatives of the above mentioned procedure explained in detail with the patient, informed consent was obtained. Patient was taken to the catheterization lab and prepped and draped in usual fashion. 1% lidocaine was used to anesthetize the right radial artery. A 6- Czech sheath was placed in the right radial artery using modified Seldinger technique. Left coronary angiography was performed with a 5-Czech JL 3.5 catheter and right coronary angiography was performed with a 5-Czech JR5 catheter in various views. A 5-Czech pigtail catheter was inserted into the left ventricle and pressure measurements were obtained. Left ventriculography was performed in the JOHNSON projection with a power injection. The right radial sheath was removed and a TR band was placed with hemostasis achieved. The patient tolerated the procedure well. Patient was transported back to the post catheterization holding area in stable condition. Conscious Sedation: Patient was monitored under the direct supervision of vision of myself for conscious sedation using 1 mg Versed and 25 mcg fentanyl for a total duration of 27 minutes HEMODYNAMICS: Aorta: Blood pressure 105/72, heart rate 78 bpm LV: 97/6, LVEDP 22 mmHg SELECTIVE CORONARY ARTERIOGRAPHY: LEFT MAIN: The left main is a large caliber vessel which bifurcates into the LAD and circumflex. There is no significant stenosis. LEFT ANTERIOR DESCENDING CORONARY ARTERY: LAD is a large caliber vessel which wraps around to the apex. There is no significant stenosis. LEFT CIRCUMFLEX CORONARY ARTERY: Left circumflex is a large caliber vessel without significant stenosis. The circumflex gives off 2 obtuse marginal branch es and the PDA and is the dominant vessel. There is a 20% stenosis of the OM 2 branch RIGHT CORONARY ARTERY: The right coronary artery is a small caliber vessel which gives off an acute marginal and is nondominant. There is no significant stenosis. LEFT VENTRICULOGRAPHY: Left ventricular ejection fraction is 60% without wall motion abnormalities. There is no significant mitral regurgitation and no significant gradient with pullback across the aortic valve. FINAL IMPRESSION: 1. Normal coronary arteries except for a 20% stenosis of OM 2 as described above. 2. Ejection fraction 30% with apical ballooning consistent with Takotsubo's cardiomyopathy 3. Elevated left-sided filling pressures PLAN: 1. Aggressive risk factor modification per most recent ACC/AHA guidelines. 2. Optimize heart failure regimen.
[2020-07-29 11:35] LABS: Glucose,Whole Blood 139 mg/dL (75-99)
--- NOTE | 2020-07-29 13:27 | P.PN ---
Subjective Progress Note Date: 07/29/20 HISTORY OF PRESENT ILLNESS This is a 65-year-old female patient of Dr. Mosley and Dr. Norris with past medical history of COPD, chronic hypoxic respiratory failure with home O2, hypertension, remote history of tobacco use and dependence. Patient complains of increasing shortness of breath for the past week with nonproductive cough. She denies having any fever or chills. She denies having any chest pain. No lower extremity edema. No recent travel. She states her last hospitalization for COPD exacerbation was about one year ago. Patient presented to [facility] emergency center. Patient was afebrile, heart rate 101, blood pressure 111/66, pulse ox 88% on 2 L nasal cannula. Blood work revealed WBC 12.7, hemoglobin 14.5. Sodium 132, potassium 4.9, chloride 96, CO2 21, BUN 13 and creatinine 0.62, blood sugar 94. Liver function tests were normal, lactic acid 1.5, troponin 0.026 and proBNP 7180. EKG was a sinus rhythm at rate of [address] changes. Chest x-ray reveals trace effusions and patchy right basilar atelectasis and/or infiltrate. Correlate for underlying pneumonia or possible mild heart failure. Echocardiogram reveals moderate global hypokinesia of the LV, EF 25-30%, mild aortic stenosis with gradient of 15.61 mmHg, mild mitral regurgitation, mild tricuspid regurgitation, moderate to severe pulmonary hypertension. Repeat troponin 0.019 and 0.015. Patient admitted to the cardiac stepdown unit and consult requested with pulmonary medicine and cardiology. 07/29: Patient states that her breathing status is improved today. We will plan to transition her to oral prednisone in the morning. She has undergone heart catheterization with Dr. Dewey which revealed normal coronary arteries, ejection fraction 30% with apical ballooning consistent with Takotsubo's cardiomyopathy. Patient has been afebrile, heart rate 71, blood pressure 84/55, pulse ox 94% on room air. Repeat blood work reveals sodium 135, potassium 4.4, chloride 97, CO2 29, BUN 22 and creatinine 0.67. Blood sugars running between 139 and 207. Anticipate possible discharge tomorrow. REVIEW OF SYSTEMS Constitutional: No fever, no chills, no night sweats. No weight change. Reports weakness, fatigue or lethargy. No daytime sleepiness. EENT: No headache. No blurred vision or double vision, no loss of vision. No loss of Hearing, no ringing in the ears, no dizziness. No nasal drainage or congestion. No epistaxis. No sore throat. Lungs: Reports shortness of breath-improving, reports cough, no sputum production. Reports wheezing. Dyspnea with exertion. Cardiovascular: No chest pain, no lower extremity edema. No palpitations. No paroxysmal nocturnal dyspnea. Reports orthopnea. No lightheadedness or dizziness. No syncopal episodes. Abdominal: No abdominal pain. No nausea, vomiting. No diarrhea. No constipation. No bloody or tarry stools.. No loss of appetite. Genitourinary: No dysuria, increased frequency, urgency. No urinary retention. Musculoskeletal: No myalgias. Reports muscle weakness, no gait dysfunction, no frequent falls. No back pain. No neck pain. Integumentary: No wounds, no lesions. No rash or pruritus. No unusual bruising. No change in hair or nails. Neurologic: No aphasia. No facial droop. No change in mentation. No head injury. No headache. No paralysis. No paresthesia. Psychiatric: No depression. No anxiety. No mood swings. Endocrine: Reports abnormal blood sugars. No weight change. No excessive sweating or thirst. No cold intolerance. PHYSICAL EXAMINATION Gen: This is an 65-year-old female. Patient's last hematocrit. Distress. HEENT: Head is atraumatic, normocephalic. Pupils equal, round. Sclerae is anicteric. NECK: Supple. No JVD. No lymphadenopathy. No thyromegaly. LUNGS: Diminished bilaterally with expiratory wheezesi. No intercostal retractions. HEART: Regular rate and rhythm. No murmur. ABDOMEN: Soft. Bowel sounds are present. No masses. No tenderness. EXTREMITIES: No pedal edema. No calf tenderness. Dorsalis pedis +2 bilaterally. NEUROLOGICAL: Patient is awake, alert and oriented x3. Cranial nerves 2 through 12 are grossly intact. ASSESSMENT AND PLAN 1. Acute on chronic hypoxic respiratory failure secondary to a combination of acute exacerbation of COPD and acute systolic heart failure, new onset. Consults with cardiology and pulmonary medicine. 2. Acute exacerbation of COPD. Continue DuoNeb treatments 4 times daily and every 2 hours as needed, Symbicort twice daily, Solu-Medrol 40 mg IV every 8 hours and transition to oral prednisone in the morning. Patient did receive one dose each of Zithromax and ceftriaxone. Consult with pulmonary medicine. 3. Acute systolic heart failure secondary to apical ballooning consistent with Takotsubo's cardiomyopathy. Patient received 1 dose of IV Lasix 40 mg in the ER. Monitor I&O, daily weights, electrolytes and renal function. 4. Hypertension. Continue Cardizem CD 240 mg daily. 5. Hypomagnesemia. Status post replacement. 6. Chronic hypoxic respiratory failure on home O2 at 2 L nasal cannula. 7. Recurrent depression. Continue Lexapro 10 mg daily. 8. DVT prophylaxis. Heparin subcu. 9. GI prophylaxis. Protonix. Discharge plan: home on Impression and plan of care have been directed as dictated by the signing physician. Adriana Mobley nurse practitioner acting as scribe for signing physician. Objective - Vital Signs Vital signs: Vital Signs Temp 98.2 F 07/29/20 04:00 Pulse 62 07/29/20 04:00 Resp 18 07/29/20 04:00 BP 110/60 07/29/20 04:00 Pulse Ox 95 07/29/20 04:00 Intake & Output 07/28/20 07/29/20 07/29/20 18:59 06:59 18:59 Intake Total 358 240 Balance 358 240 Weight 55.8 kg Intake: Oral 358 240 Other: Voiding Method Toilet Toilet # Voids 3 2 - Labs CBC & Chem 7: 07/28/20 06:21 07/29/20 06:33 Labs: Abnormal Lab Results - Last 24 Hours (Table) 07/28/20 07/28/20 07/29/20 Range/Units 12:05 20:32 06:12 Sodium (137-145) mmol/L Chloride (98-107) mmol/L BUN (7-17) mg/dL Glucose (74-99) mg/dL POC Glucose (mg/dL) 144 H 207 H 202 H (75-99) mg/dL 07/29/20 Range/Units 06:33 Sodium 135 L (137-145) mmol/L Chloride 97 L (98-107) mmol/L BUN 22 H (7-17) mg/dL Glucose 185 H (74-99) mg/dL POC Glucose (mg/dL) (75-99) mg/dL Microbiology - Last 24 Hours (Table) 07/27/20 20:53 Blood Culture - Preliminary Blood No Growth after 24 hours
--- NOTE | 2020-07-29 14:13 | P.PN ---
Subjective Progress Note Date: 07/29/20 CHIEF COMPLAINT: Heart failure HISTORY OF PRESENT ILLNESS: Patient examined at bedside. She denies chest pain. Reports her shortness of breath is improving. Echocardiogram completed yesterday revealed ejection fraction between 25 and 30%, LV wall hypokinesis, and moderate to severe pulmonary hypertension PHYSICAL EXAM: VITAL SIGNS: Reviewed. GENERAL: Well-developed in no acute distress. HEENT: Head is normocephalic. Pupils are equal, round. Sclerae anicteric. Mucous membranes of the mouth are moist. Neck supple. No JVD or thyromegaly LUNGS: Respirations even and unlabored. Lungs essentially clear to auscultation bilaterally. HEART: Regular rate and rhythm. S1 and S2 heard. + systolic murmur ABDOMEN: Soft. Nontender. EXTREMITIES: Normal range of motion. No clubbing or cyanosis. Peripheral pulses intact. No lower extremity edema NEUROLOGIC: Awake and alert. Oriented x 3. ASSESSMENT: Acute exacerbation of COPD Possible acute systolic congestive heart failure, BNP 7180, clinically appears euvolemic New onset cardiomyopathy, ejection fraction 25-30% Hypertension History of palpitations History of nicotine dependence PLAN: Cardiac cath recommended due to patients EF of 25-30% and LV wall hypokinesis. Spoke with patient and daughter at the bedside regarding cath. Patient is agreeable. Patient will undergo cardiac cath this morning with Dr. Dewey. Further recommendations pending cardiac cath findings Nurse practitioner note has been reviewed by physician. Signing provider agrees with the documented findings, assessment, and plan of care. Objective - Vital Signs Vital signs: Vital Signs Temp 97.8 F 07/29/20 08:00 Pulse 66 07/29/20 12:47 Resp 16 07/29/20 12:05 BP 84/50 07/29/20 12:05 Pulse Ox 94 L 07/29/20 12:05 Intake & Output 07/28/20 07/29/20 07/29/20 18:59 06:59 18:59 Intake Total 358 240 465 Balance 358 240 465 Weight 55.8 kg Intake: IV 100 Oral 358 240 365 Other: Voiding Method Toilet Toilet Toilet # Voids 3 2 1 - Labs CBC & Chem 7: 07/28/20 06:21 07/29/20 06:33 Labs: Abnormal Lab Results - Last 24 Hours (Table) 07/28/20 07/29/20 07/29/20 Range/Units 20:32 06:12 06:33 Sodium 135 L (137-145) mmol/L Chloride 97 L (98-107) mmol/L BUN 22 H (7-17) mg/dL Glucose 185 H (74-99) mg/dL POC Glucose (mg/dL) 207 H 202 H (75-99) mg/dL 07/29/20 Range/Units 11:34 Sodium (137-145) mmol/L Chloride (98-107) mmol/L BUN (7-17) mg/dL Glucose (74-99) mg/dL POC Glucose (mg/dL) 139 H (75-99) mg/dL Microbiology - Last 24 Hours (Table) 07/27/20 20:53 Blood Culture - Preliminary Blood No Growth after 24 hours
[2020-07-29 16:27] LABS: Glucose,Whole Blood 140 mg/dL (75-99)
[2020-07-29 20:21] LABS: Glucose,Whole Blood 158 mg/dL (75-99)
[2020-07-29 23:49] VITALS: TEMP 98
[2020-07-30 06:21] LABS: Glucose,Whole Blood 173 mg/dL (75-99)
[2020-07-30] MEDS: PANTOPRAZOLE 40 MG TABLET PO SCH (06:32)
[2020-07-30] MEDS: INSULIN ASPART (NovoLOG) 100 UNIT/ML VIAL SQ SCH (06:32)
--- NOTE | 2020-07-30 08:46 | P.DS ---
Providers Date of admission: 07/27/20 20:15 Expected date of discharge: 07/30/20 Attending physician: Ml Wilkerson Consults: 07/27/20 20:08 Consult Physician Urgent Consulting Provider: Valarie Norris Consult Reason/Comments: acute/chronic resp failure, AECOPD, new onset HF, CAP Do you want consulting provider notified?: Yes 07/27/20 20:15 Consult Physician Urgent Consulting Provider: [facility] Consult Reason/Comments: possible new onset heart failure Do you want consulting provider notified?: Yes Primary care physician: Win Mosley MD Hospital Course: HISTORY OF PRESENT ILLNESS This is a 65-year-old female patient of Dr. Mosley and Dr. Norris with past medical history of COPD, chronic hypoxic respiratory failure with home O2, hypertension, remote history of tobacco use and dependence. Patient complains of increasing shortness of breath for the past week with nonproductive cough. She denies having any fever or chills. She denies having any chest pain. No lower extremity edema. No recent travel. She states her last hospitalization for COPD exacerbation was about one year ago. Patient presented to [facility] emergency center. Patient was afebrile, heart rate 101, blood pressure 111/66, pulse ox 88% on 2 L nasal cannula. Blood work revealed WBC 12.7, hemoglobin 14.5. Sodium 132, potassium 4.9, chloride 96, CO2 21, BUN 13 and creatinine 0.62, blood sugar 94. Liver function tests were normal, lactic acid 1.5, troponin 0.026 and proBNP 7180. EKG was a sinus rhythm at rate of [address] changes. Chest x-ray reveals trace effusions and patchy right basilar atelectasis and/or infiltrate. Correlate for underlying pneumonia or possible mild heart failure. Echocardiogr am reveals moderate global hypokinesia of the LV, EF 25-30%, mild aortic stenosis with gradient of 15.61 mmHg, mild mitral regurgitation, mild tricuspid regurgitation, moderate to severe pulmonary hypertension. Repeat troponin 0.019 and 0.015. Patient admitted to the cardiac stepdown unit and consult requested with pulmonary medicine and cardiology. 07/29: Patient states that her breathing status is improved today. We will plan to transition her to oral prednisone in the morning. She has undergone heart catheterization with Dr. Dewey which revealed normal coronary arteries, ejection fraction 30% with apical ballooning consistent with Takotsubo's cardiomyopathy. Patient has been afebrile, heart rate 71, blood pressure 84/55, pulse ox 94% on room air. Repeat blood work reveals sodium 135, potassium 4.4, chloride 97, CO2 29, BUN 22 and creatinine 0.67. Blood sugars running between 139 and 207. Anticipate possible discharge tomorrow. 07/30: Patient has been started on Toprol-XL and lisinopril by cardiology and diltiazem was discontinued. Patient advised to take the medications at nighttime as her blood pressures been on the lower side. Prednisone taper will be provided. Patient states her breathing status is back to baseline. Lungs are clear to auscultation. Patient has been afebrile, heart rate 96, blood pressure 108/67, pulse ox 90% on 2 L nasal cannula. Patient will be discharged home today in stable condition. ASSESSMENT AND PLAN 1. Acute on chronic hypoxic respiratory failure secondary to a combination of acute exacerbation of COPD and acute systolic heart failure, new onset. 2. Acute exacerbation of COPD. 3. Acute systolic heart failure secondary to apical ballooning consistent with Takotsubo's cardiomyopathy. 4. Hypertension. 5. Hypomagnesemia. 6. Chronic hypoxic respiratory failure on home O2 at 2 L nasal cannula. 7. Recurrent depression. Discharge plan: home on Impression and plan of care have been directed as dictated by the signing physician. Adriana Mobley nurse practitioner acting as scribe for signing physician. Patient Condition at Discharge: Good Plan - Discharge Summary Discharge Rx Participant: No New Discharge Prescriptions: New predniSONE 0 mg PO DIRECTED #30 tab Metoprolol Succinate (ER) [Toprol XL] 25 mg PO DAILY #30 tab.er.24h lisinopriL [Zestril] 5 mg PO DAILY #30 tab Continue Tiotropium [place] [Spiriva] 1 cap INHALATION RT-DAILY Budesonide/Formoterol Fumarate [Symbicort 160-4.5 Mcg Inhaler] 2 puff INHALATION RT-BID Escitalopram [Lexapro] 10 mg PO DAILY Albuterol Sulfate [Ventolin HFA] 2 puff INHALATION RT-Q4H PRN PRN Reason: Shortness Of Breath Discontinued Diltiazem HCl [Cartia Xt] 240 mg PO DAILY Discharge Medication List Budesonide/Formoterol Fumarate [Symbicort 160-4.5 Mcg Inhaler] 2 puff INHALATION RT-BID 05/17/18 [History] Tiotropium [place] [Spiriva] 1 cap INHALATION RT-DAILY 05/17/18 [History] Albuterol Sulfate [Ventolin HFA] 2 puff INHALATION RT-Q4H PRN 07/27/20 [History] Escitalopram [Lexapro] 10 mg PO DAILY 07/27/20 [History] Metoprolol Succinate (ER) [Toprol XL] 25 mg PO DAILY #30 tab.er.24h 07/30/20 [Rx] lisinopriL [Zestril] 5 mg PO DAILY #30 tab 07/30/20 [Rx] predniSONE 0 mg PO DIRECTED #30 tab 07/30/20 [Rx] Follow up Appointment(s)/Referral(s): Win Mosley MD [Primary Care Provider] - 1 Week Berry Pan MD [STAFF PHYSICIAN] - 2 Weeks Patient Instructions/Handouts: *Surgery [facility] - After Heart Catheterization - Uniform Maker Instructions Activity/Diet/Wound Care/Special Instructions: Take lisinopril and Toprol at bedtime. Discharge Disposition: HOME SELF-CARE
[2020-07-30] MEDS: HEPARIN SODIUM,PORCINE 5,000 UNIT/ML 1 ML VIAL SQ SCH (08:59)
[2020-07-30] MEDS ORDERED: lisinopriL 5 MG TAB PO SCH (09:00)
[2020-07-30] MEDS: ESCITALOPRAM 10 MG TAB PO SCH (09:00)
[2020-07-30] MEDS ORDERED: predniSONE 20 MG TAB PO SCH (09:00)
[2020-07-30] MEDS ORDERED: METOPROLOL SUCCINATE (ER) 25 MG TAB.ER.24H PO SCH (09:00)
[2020-07-30] MEDS: SYMBICORT 160-4.5 MCG INHALER INHALATION SCH (09:08)
[2020-07-30] MEDS: IPRATROPIUM-ALBUTEROL 3 ML NEB INHALATION SCH (09:08)
[2020-07-30 09:10] VITALS: BP 108/67; RESP 16
[2020-07-30 09:12] VITALS: PULSE 76
--- NOTE | 2020-07-30 12:58 | P.PN ---
Subjective Progress Note Date: 07/30/20 CHIEF COMPLAINT: Heart failure HISTORY OF PRESENT ILLNESS: Patient is status post cardiac catheterization. Patient examined at bedside. She denies chest pain. Denies shortness of breath. Vital signs are stable. PHYSICAL EXAM: VITAL SIGNS: Reviewed. GENERAL: Well-developed in no acute distress. HEENT: Head is normocephalic. Pupils are equal, round. Sclerae anicteric. Mucous membranes of the mouth are moist. Neck supple. No JVD or thyromegaly LUNGS: Respirations even and unlabored. Lungs essentially clear to auscultation bilaterally. HEART: Regular rate and rhythm. S1 and S2 heard. + systolic murmur ABDOMEN: Soft. Nontender. EXTREMITIES: Normal range of motion. No clubbing or cyanosis. Peripheral pulses intact. No lower extremity edema, right radial cath site with pulse present. NEUROLOGIC: Awake and alert. Oriented x 3. ASSESSMENT: Acute exacerbation of COPD Possible acute systolic congestive heart failure, BNP 7180, clinically appears euvolemic New onset cardiomyopathy, ejection fraction 25-30%, status post cardiac catheterization revealing atypical ballooning consistent with Takotsubo's cardiomyopathy and elevated left-sided filling pressure Hypertension History of palpitations History of nicotine dependence PLAN: Patient is stable for discharge home today from a cardiac standpoint. Will defer to internal medicine. Patient to follow up outpatient with Dr. Pan. Nurse practitioner note has been reviewed by physician. Signing provider agrees with the documented findings, assessment, and plan of care. Objective - Vital Signs Vital signs: Vital Signs Temp 98 F 07/30/20 03:10 Pulse 76 07/30/20 09:22 Resp 16 07/30/20 08:00 BP 108/67 07/30/20 08:00 Pulse Ox 90 L 07/30/20 08:00 Intake & Output 07/29/20 07/30/20 07/30/20 18:59 06:59 18:59 Intake Total 465 200 Balance 465 200 Weight 57.4 kg Intake: IV 100 Oral 365 200 Other: Voiding Method Toilet Toilet Toilet # Voids 1 1 0 # Bowel Movements 1 0 - Labs CBC & Chem 7: 07/28/20 06:21 07/29/20 06:33 Labs: Abnormal Lab Results - Last 24 Hours (Table) 07/29/20 07/29/20 07/30/20 Range/Units 16:26 20:20 06:20 POC Glucose (mg/dL) 140 H 158 H 173 H (75-99) mg/dL Microbiology - Last 24 Hours (Table) 07/27/20 20:53 Blood Culture - Preliminary Blood No Growth after 48 hours
--- NOTE | 2020-08-03 00:30 | CDI ---
Documentation Clarification Form Date: 08/03/2020 From: Noah Justice Phone: If you have a question about this query, please contact Celi Ervin, Mgmt Analyst at [phone] between 8am and 5pm. Admit Date: 07/27/2020 Discharge Date: 07/30/2020 Patient Name: Sandrine Ward Visit Number: [id number] ATTENTION: The Clinical Documentation Specialists (CDI) and [facility] Coding Staff appreciate your assistance in clarifying documentation. Please respond to the clarification below the line at the bottom and electronically sign. The CDI & [facility] Coding staff will review the response and follow-up if needed. Please note: Queries are made part of the Legal Health Record. If you have any questions, please contact the author of this message via ITS. Dear Viviane Collins MD., Hypotension is documented in the 07/29 Progress note as "Patient hypotensive with SBP in the 70s.Asymptomatic". History/Risk Factors: HTN, COPD, Major depression disorder Patients B/P: BP 84/50 07/29/20 12:05 Treatment:Continue cautious fluid administration.Oral fluids encouraged Will decrease patient's lisinopril from 10 mg to 5 mg daily and also decrease metoprolol 50 mg daily down to 25 mg daily. In your professional opinion, can you please specify the etiology of the hypotension if known? Iatrogenic Hypotension Postoperative Hypotension Other Condition, please specify Unable to determine MTDD
--- NOTE | 2020-08-05 21:58 | CDI ---
Documentation Clarification Form Date: 08/06/2020 From: Noah Justice Phone: If you have a question about this query, please contact Celi Ervin, Oncology Transplant Network Manager at [phone] between 8am and 5pm. Admit Date: 07/27/2020 Discharge Date: 07/30/2020 Patient Name: Sandrine Ward Visit Number: [id number] ATTENTION: The Clinical Documentation Specialists (CDI) and [facility] Coding Staff appreciate your assistance in clarifying documentation. Please respond to the clarification below the line at the bottom and electronically sign. The CDI & [facility] Coding staff will review the response and follow-up if needed. Please note: Queries are made part of the Legal Health Record. If you have any questions, please contact the author of this message via ITS. Dear Dr Berry Pan MD., Hypotension is documented in the 07/29 Progress note as "Patient hypotensive with SBP in the 70s.Asymptomatic". History/Risk Factors: HTN, COPD, Major depression disorder Patients B/P: BP 84/50 07/29/20 12:05 Treatment:Continue cautious fluid administration.Oral fluids encouraged Will decrease patient's lisinopril from 10 mg to 5 mg daily and also decrease metoprolol 50 mg daily down to 25 mg daily. In your professional opinion, can you please specify the etiology of the hypotension if known? Iatrogenic Hypotension Postoperative Hypotension Other Condition, please specify Unable to determine Unable to determine MTDD
== END 2020-07-30 11:16 | disposition home or self-care (01) | DRG 286 ==
LOC: EC 17:02 → 3SCARD 20:15
PROVIDERS: ADMIT Family Medicine; ATTEND Family Medicine
PROC: 4A023N7 Measurement of Cardiac Sampling and Pressure, Left Heart, Percutaneous Approach (ICD-10-PCS; principal; 2020-07-29 10:32)
PROC: B2111ZZ Fluoroscopy of Multiple Coronary Arteries using Low Osmolar Contrast (ICD-10-PCS; principal; 2020-07-29 10:32)
DX: I11.0 Hypertensive heart disease with heart failure (principal); J96.21 Acute and chronic respiratory failure with hypoxia; I50.21 Acute systolic (congestive) heart failure; J44.1 Chronic obstructive pulmonary disease with (acute) exacerbation; F33.9 Major depressive disorder, recurrent, unspecified; I51.81 Takotsubo syndrome; F17.200 Nicotine dependence, unspecified, uncomplicated; E83.42 Hypomagnesemia; I27.20 Pulmonary hypertension, unspecified; I08.3 Combined rheumatic disorders of mitral, aortic and tricuspid valves; Z79.899 Other long term (current) drug therapy; Z86.14 Personal history of Methicillin resistant Staphylococcus aureus infection; Z79.51 Long term (current) use of inhaled steroids; Z99.81 Dependence on supplemental oxygen; Z82.49 Family history of ischemic heart disease and other diseases of the circulatory system
CPT/HCPCS: 36415; 71046; 80048; 80053; 83605; 83880; 84484; 85025; 85610; 85730; 87040; 93005; 93306; 93458; 94640; 96365; 96367; 96375; 99285

== ENCOUNTER → 2020-08-28 | Outpatient (CLI) | payer MEDICARE, OTHER ==
[2020-08-28 19:26] LABS: African American GFR (CKD) 49.9 (60.0-200.0); Anion Gap 14.4 mmol/L (4.00-12.00); BUN/Creat Ratio 20.77 Ratio (12.00-20.00); Carbon Dioxide 28.6 mmol/L (21.6-31.8); Magnesium 1.9 mg/dL (1.5-2.4); Potassium 3.9 mmol/L (3.5-5.5)
== END | disposition home or self-care (01) ==
LOC: LABWHC1 08:44
PROVIDERS: ATTEND Physician Assistant
DX: I50.9 Heart failure, unspecified (principal); I42.9 Cardiomyopathy, unspecified; R00.0 Tachycardia, unspecified
CPT/HCPCS: 36415; 80048; 83735; 84443

== ENCOUNTER 2020-09-21 03:02 | Emergency (ER) | payer MEDICARE, OTHER ==
--- NOTE | 2020-09-21 03:08 | ED ---
General Adult HPI - General Stated complaint: Weakness Time Seen by Provider: 09/21/20 03:02 - History of Present Illness Initial comments: Sandrine is a pleasant 65yo female who presents to the emergency department today via EMS for evaluation of generalized weakness, loss of appetite, decreased oral intake for 2 weeks, intermittent numbness in her left leg for a few days, but feeling like her left leg is numb from the knee down for the past day. - Related Data Home Medications Medication Instructions Recorded Confirmed Budesonide/Formoterol Fumarate 2 puff INHALATION RT-BID 05/17/18 07/27/20 [Symbicort 160-4.5 Mcg Inhaler] Tiotropium [place] [Spiriva] 1 cap INHALATION RT-DAILY 05/17/18 07/27/20 Albuterol Sulfate [Ventolin HFA] 2 puff INHALATION RT-Q4H PRN 07/27/20 07/27/20 Escitalopram [Lexapro] 10 mg PO DAILY 07/27/20 07/27/20 Previous Rx's Medication Instructions Recorded Metoprolol Succinate (ER) [Toprol 25 mg PO DAILY #30 tab.er.24h 07/30/20 XL] lisinopriL [Zestril] 5 mg PO DAILY #30 tab 07/30/20 predniSONE 0 mg PO DIRECTED #30 tab 07/30/20 Allergies Allergy/AdvReac Type Severity Reaction Status Date / Time No Known Allergies Allergy Verified 07/27/20 22:51 Review of Systems ROS Statement: Those systems with pertinent positive or pertinent negative responses have been documented in the HPI. ROS Other: All systems not noted in ROS Statement are negative. Past Medical History Past Medical History: COPD, Hypertension History of Any Multi-Drug Resistant Organisms: MRSA Date of last positivie culture/infection: 2017 MDRO Source:: Sputum Past Surgical History: No Surgical Hx Reported Past Psychological History: No Psychological Hx Reported Smoking Status: Current every day smoker Past Alcohol Use History: None Reported Past Drug Use History: None Reported General Exam - General Exam Comments Initial Comments: Physical Exam GENERAL: Ill appearing elderly female HENT: Normocephalic, Atraumatic. EYES: PERRL, EOMI PULMONARY: Unlabored respirations. No audible rales rhonchi or wheezing was noted. CARDIOVASCULAR: RRR Extremities are cool No palpable DP/PT pulses bilaterally, doppler signals present ABDOMEN: Soft and nontender with normal bowel sounds. SKIN: Skin is cold to touch Skin is pale, no lesions or rashes and otherwise unremarkable. : Deferred NEUROLOGIC: Patient is alert and oriented x3. Moving all extremities spontaneously Decreased sensation left lower extremity, normal strength in ankle and knee MUSCULOSKELETAL: Normal extremities with adequate strength and full range of motion. No lower extremity swelling or edema. No calf tenderness. PSYCHIATRIC: Normal psychiatric evaluation. Course Vital Signs 09/21/20 09/21/20 09/21/20 03:04 03:23 03:52 Temperature 94.1 F L Pulse Rate 75 88 Respiratory 15 16 Rate Blood Pressure 81/54 78/33 O2 Sat by Pulse 95 97 Oximetry 09/21/20 09/21/20 09/21/20 04:46 04:55 05:40 Temperature 97.5 F L Pulse Rate 92 94 101 H Respiratory 18 Rate Blood Pressure 72/43 O2 Sat by Pulse 93 L Oximetry 09/21/20 09/21/20 05:56 06:29 Temperature Pulse Rate 100 Respiratory 18 Rate Blood Pressure 74/47 100/49 O2 Sat by Pulse 91 L Oximetry EKG Findings - EKG Comments: EKG Findings:: EKG obtained due to complaint of generalized weakness, EKG obtained at 3:16 AM, rate is 94 over the sinus normal axis, normal intervals, TX 180, QRS 80, QTC [address] elevations or depressions no evidence of acute ischemia or infarction. 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: Identity, Site, Procedure, Consent Site Marked: No Site Verified With Patient/Guardian: Yes Final Confirmation: Procedure, Site, Laterality, Patient Position, Special Equipment, Confirmed w/Provider - Central Line Placement Right IJ Consent Obtained: verbal consent Patient Placed on Monitor/Pulse Ox: Yes MD Prep: mask, gown, gloves Central Line Prep: Chlorhexidine scrub Local Anesthesia Used: Lidocaine 1% Amount of Anesthesia Used (mls): 2 Ultrasound Used for Placement: Yes Central Line Lumen Inserted: triple Bloods Obtained for Lab: Yes Central Line Position: good blood return, all ports aspirated, flushed, capped, sutured in place with 3-0 nylon Dressing Applied: Tegaderm Patient Tolerated Procedure: well Complications: hematoma at puncture site Medical Decision Making - Medical Decision Making The patient was seen and evaluated, history is obtained from patient and EMS This is a very ill-appearing dehydrated 65-year-old female presenting today with decreased oral intake for over a week, 3 days of nausea and vomiting, numbness in her left leg Patient is a very odd constellation of symptoms, she is also noted to be hypotensive, hypothermic upon arrival. Septic workup including workup for possible COVID 19 was initiated Warmed IV fluid bolus was initiated Patient remained cool to the touch despite IV fluids, bear hugger was applied Labs resulted with multiple significant abnormalities which were addressed Hyperkalemia - treated with meds, IVF KENZIE - treated with IVF bolus and infusion, levophed Lactic acidosis - treated with IVF, levophed elevated d-dimer, LDH, Procal, CRP concerning for sepsis vs COVID - rocephin ordered for possible underlying infection Patient persistently hypotensive after 30cc/kg bolus - discussed central line placement, patient agreeable Repeat labs drawn after central line placement Hyperkalemia resolved Cr improving LA improving but remains elevated Transaminases worsening - patient now on pressors Patient care was discussed with Dr. Roldan who requests patient received Levaquin, hydrocortisone and then Decadron scheduled, admission to ICU Vision care was discussed with Dr. Osborne who is aware of the patient's labs, trending vital signs, central line in place, patient on pressors, high suspicion for multisystem organ failure secondary to: 19 is there is no other septic source. Aware that we have no CT imaging of chest abdomen or pelvis. Agreeable to plan for admission to the ICU for continued supportive care. - Lab Data Result diagrams: 09/21/20 05:21 09/21/20 05:25 Lab Results 09/21/20 09/21/20 09/21/20 Range/Units 03:07 03:20 03:20 WBC (3.8-10.6) k/uL RBC (3.80-5.40) m/uL Hgb (11.4-16.0) gm/dL Hct (34.0-46.0) % MCV (80.0-100.0) fL MCH (25.0-35.0) pg MCHC (31.0-37.0) g/dL RDW (11.5-15.5) % Plt Count (150-450) k/uL Neutrophils % % Lymphocytes % % Monocytes % % Eosinophils % % Basophils % % Neutrophils # (1.3-7.7) k/uL Lymphocytes # (1.0-4.8) k/uL Monocytes # (0-1.0) k/uL Eosinophils # (0-0.7) k/uL Basophils # (0-0.2) k/uL Hypochromasia Macrocytosis PT 17.2 H (9.0-12.0) sec INR 1.8 H (<1.2) APTT 24.8 (22.0-30.0) sec D-Dimer 5.54 H (<0.60) mg/L FEU Sodium (137-145) mmol/L Potassium (3.5-5.1) mmol/L Chloride (98-107) mmol/L Carbon Dioxide (22-30) mmol/L Anion Gap mmol/L BUN (7-17) mg/dL Creatinine (0.52-1.04) mg/dL Est GFR (CKD-EPI)AfAm (>60 ml/min/1.73 sqM) Est GFR (CKD-EPI)NonAf (>60 ml/min/1.73 sqM) Glucose (74-99) mg/dL POC Glucose (mg/dL) 99 (75-99) mg/dL POC Glu Operator Cavity Pump ID Arlin, Flor Lactic Ac Sepsis Rflx Plasma Lactic Acid [place] (0.7-2.0) mmol/L Calcium (8.4-10.2) mg/dL Magnesium (1.6-2.3) mg/dL Total Bilirubin (0.2-1.3) mg/dL AST (14-36) U/L ALT (4-34) U/L Alkaline Phosphatase (38-126) U/L Lactate Dehydrogenase (313-618) U/L Troponin I (0.000-0.034) ng/mL C-Reactive Protein (<10.0) mg/L NT-Pro-B Natriuret Pep pg/mL Total Protein (6.3-8.2) g/dL Albumin (3.5-5.0) g/dL Urine Color Yellow Urine Appearance Turbid H (Clear) Urine pH 5.0 (5.0-8.0) Ur Specific [place] 1.025 (1.001-1.035) Urine Protein 1+ H (Negative) Urine Glucose (UA) Negative (Negative) Urine Ketones Negative (Negative) Urine Blood Trace H (Negative) Urine Nitrite Negative (Negative) Urine Bilirubin 1+ H (Negative) Urine Urobilinogen <2.0 (<2.0) mg/dL Ur Leukocyte Esterase Large H (Negative) Urine RBC 8 H (0-5) /hpf Urine WBC 6 H (0-5) /hpf Ur Squamous Epith Cells 2 (0-4) /hpf Urine Bacteria Rare H (None) /hpf Hyaline Casts 31 H (0-2) /lpf Urine Mucus Rare H (None) /hpf 09/21/20 09/21/20 09/21/20 Range/Units 03:20 03:20 03:20 WBC (3.8-10.6) k/uL RBC (3.80-5.40) m/uL Hgb (11.4-16.0) gm/dL Hct (34.0-46.0) % MCV (80.0-100.0) fL MCH (25.0-35.0) pg MCHC (31.0-37.0) g/dL RDW (11.5-15.5) % Plt Count (150-450) k/uL Neutrophils % % Lymphocytes % % Monocytes % % Eosinophils % % Basophils % % Neutrophils # (1.3-7.7) k/uL Lymphocytes # (1.0-4.8) k/uL Monocytes # (0-1.0) k/uL Eosinophils # (0-0.7) k/uL Basophils # (0-0.2) k/uL Hypochromasia Macrocytosis PT (9.0-12.0) sec INR (<1.2) APTT (22.0-30.0) sec D-Dimer (<0.60) mg/L FEU Sodium 135 L (137-145) mmol/L Potassium 6.4 H* (3.5-5.1) mmol/L Chloride 106 (98-107) mmol/L Carbon Dioxide 14 L (22-30) mmol/L Anion Gap 15 mmol/L BUN 26 H (7-17) mg/dL Creatinine 1.84 H (0.52-1.04) mg/dL Est GFR (CKD-EPI)AfAm 33 (>60 ml/min/1.73 sqM) Est GFR (CKD-EPI)NonAf 28 (>60 ml/min/1.73 sqM) Glucose 86 (74-99) mg/dL POC Glucose (mg/dL) (75-99) mg/dL POC Glu Operator Cavity Pump ID Lactic Ac Sepsis Rflx Plasma Lactic Acid [place] 8.6 H* (0.7-2.0) mmol/L Calcium 8.4 (8.4-10.2) mg/dL Magnesium 2.2 (1.6-2.3) mg/dL Total Bilirubin 1.1 (0.2-1.3) mg/dL AST 443 H (14-36) U/L ALT 213 H (4-34) U/L Alkaline Phosphatase 91 (38-126) U/L Lactate Dehydrogenase 2563 H (313-618) U/L Troponin I (0.000-0.034) ng/mL C-Reactive Protein 46.0 H (<10.0) mg/L NT-Pro-B Natriuret Pep 26145 pg/mL Total Protein 5.1 L (6.3-8.2) g/dL Albumin 2.8 L (3.5-5.0) g/dL Urine Color Urine Appearance (Clear) Urine pH (5.0-8.0) Ur Specific [place] (1.001-1.035) Urine Protein (Negative) Urine Glucose (UA) (Negative) Urine Ketones (Negative) Urine Blood (Negative) Urine Nitrite (Negative) Urine Bilirubin (Negative) Urine Urobilinogen (<2.0) mg/dL Ur Leukocyte Esterase (Negative) Urine RBC (0-5) /hpf Urine WBC (0-5) /hpf Ur Squamous Epith Cells (0-4) /hpf Urine Bacteria (None) /hpf Hyaline Casts (0-2) /lpf Urine Mucus (None) /hpf 09/21/20 09/21/20 09/21/20 Range/Units 04:21 05:21 05:25 WBC 11.7 H (3.8-10.6) k/uL RBC 4.01 (3.80-5.40) m/uL Hgb 12.4 (11.4-16.0) gm/dL Hct 41.7 (34.0-46.0) % MCV 104.0 H D (80.0-100.0) fL MCH 30.9 (25.0-35.0) pg MCHC 29.7 L (31.0-37.0) g/dL RDW 15.9 H (11.5-15.5) % Plt Count 171 (150-450) k/uL Neutrophils % 80 % Lymphocytes % 7 % Monocytes % 12 % Eosinophils % 0 % Basophils % 0 % Neutrophils # 9.4 H (1.3-7.7) k/uL Lymphocytes # 0.8 L (1.0-4.8) k/uL Monocytes # 1.4 H (0-1.0) k/uL Eosinophils # 0.0 (0-0.7) k/uL Basophils # 0.0 (0-0.2) k/uL Hypochromasia Marked Macrocytosis Moderate PT (9.0-12.0) sec INR (<1.2) APTT (22.0-30.0) sec D-Dimer (<0.60) mg/L FEU Sodium 139 (137-145) mmol/L Potassium 4.6 (3.5-5.1) mmol/L Chloride 110 H (98-107) mmol/L Carbon Dioxide 20 L (22-30) mmol/L Anion Gap 9 mmol/L BUN 25 H (7-17) mg/dL Creatinine 1.64 H (0.52-1.04) mg/dL Est GFR (CKD-EPI)AfAm 38 (>60 ml/min/1.73 sqM) Est GFR (CKD-EPI)NonAf 33 (>60 ml/min/1.73 sqM) Glucose 152 H (74-99) mg/dL POC Glucose (mg/dL) (75-99) mg/dL POC Glu Operator Cavity Pump ID Lactic Ac Sepsis Rflx Y Plasma Lactic Acid [place] (0.7-2.0) mmol/L Calcium 7.8 L (8.4-10.2) mg/dL Magnesium (1.6-2.3) mg/dL Total Bilirubin 1.2 (0.2-1.3) mg/dL AST 678 H (14-36) U/L ALT 316 H (4-34) U/L Alkaline Phosphatase 74 (38-126) U/L Lactate Dehydrogenase (313-618) U/L Troponin I (0.000-0.034) ng/mL C-Reactive Protein (<10.0) mg/L NT-Pro-B Natriuret Pep pg/mL Total Protein 4.2 L (6.3-8.2) g/dL Albumin 2.2 L (3.5-5.0) g/dL Urine Color Urine Appearance (Clear) Urine pH (5.0-8.0) Ur Specific [place] (1.001-1.035) Urine Protein (Negative) Urine Glucose (UA) (Negative) Urine Ketones (Negative) Urine Blood (Negative) Urine Nitrite (Negative) Urine Bilirubin (Negative) Urine Urobilinogen (<2.0) mg/dL Ur Leukocyte Esterase (Negative) Urine RBC (0-5) /hpf Urine WBC (0-5) /hpf Ur Squamous Epith Cells (0-4) /hpf Urine Bacteria (None) /hpf Hyaline Casts (0-2) /lpf Urine Mucus (None) /hpf 09/21/20 09/21/20 Range/Units 05:25 05:25 WBC (3.8-10.6) k/uL RBC (3.80-5.40) m/uL Hgb (11.4-16.0) gm/dL Hct (34.0-46.0) % MCV (80.0-100.0) fL MCH (25.0-35.0) pg MCHC (31.0-37.0) g/dL RDW (11.5-15.5) % Plt Count (150-450) k/uL Neutrophils % % Lymphocytes % % Monocytes % % Eosinophils % % Basophils % % Neutrophils # (1.3-7.7) k/uL Lymphocytes # (1.0-4.8) k/uL Monocytes # (0-1.0) k/uL Eosinophils # (0-0.7) k/uL Basophils # (0-0.2) k/uL Hypochromasia Macrocytosis PT (9.0-12.0) sec INR (<1.2) APTT (22.0-30.0) sec D-Dimer (<0.60) mg/L FEU Sodium (137-145) mmol/L Potassium (3.5-5.1) mmol/L Chloride (98-107) mmol/L Carbon Dioxide (22-30) mmol/L Anion Gap mmol/L BUN (7-17) mg/dL Creatinine (0.52-1.04) mg/dL Est GFR (CKD-EPI)AfAm (>60 ml/min/1.73 sqM) Est GFR (CKD-EPI)NonAf (>60 ml/min/1.73 sqM) Glucose (74-99) mg/dL POC Glucose (mg/dL) (75-99) mg/dL POC Glu Operator Cavity Pump ID Lactic Ac Sepsis Rflx Plasma Lactic Acid [place] 5.9 H* (0.7-2.0) mmol/L Calcium (8.4-10.2) mg/dL Magnesium (1.6-2.3) mg/dL Total Bilirubin (0.2-1.3) mg/dL AST (14-36) U/L ALT (4-34) U/L Alkaline Phosphatase (38-126) U/L Lactate Dehydrogenase (313-618) U/L Troponin I 0.027 (0.000-0.034) ng/mL C-Reactive Protein (<10.0) mg/L NT-Pro-B Natriuret Pep pg/mL Total Protein (6.3-8.2) g/dL Albumin (3.5-5.0) g/dL Urine Color Urine Appearance (Clear) Urine pH (5.0-8.0) Ur Specific [place] (1.001-1.035) Urine Protein (Negative) Urine Glucose (UA) (Negative) Urine Ketones (Negative) Urine Blood (Negative) Urine Nitrite (Negative) Urine Bilirubin (Negative) Urine Urobilinogen (<2.0) mg/dL Ur Leukocyte Esterase (Negative) Urine RBC (0-5) /hpf Urine WBC (0-5) /hpf Ur Squamous Epith Cells (0-4) /hpf Urine Bacteria (None) /hpf Hyaline Casts (0-2) /lpf Urine Mucus (None) /hpf Critical Care Time Critical Care Time: Yes Total Critical Care Time: 75 Critical Care Time: Critical Care Time 75 Critical care time was exclusive of separately billable procedures and treating other patients and teaching time Critical care was necessary to treat or prevent imminent or life-threatening deterioration. Given the critical condition in which the patient arrived, the patient was immediately assessed by myself and the nurse, and cardiac monitoring initiated due to the potential for rapid decompensation of the patient's clinical condition. During the course of the patients stay, I spent a considerable amount of time at the bedside performing serial re-evaluations of the patient's hemodynamic and clinical status because of the recognized potential threat to life or limb in this condition. I then had a chance to review not only all of the available current laboratory and radiographic studies obtained today, but I also reviewed old records available to me at the time. Additionally, any ancillary information available including sales service assistant records were reviewed. Sequential vital signs were obtained. Disposition Clinical Impression: Multisystem organ failure, Septic shock, COPD (chronic obstructive pulmonary disease), KENZIE (acute kidney injury), Hyperkalemia, Lactic acidosis Disposition: [facility] Condition: Critical Referrals: Win Mosley MD [Primary Care Provider] - 1-2 days
[2020-09-21 03:14] LABS: Glucose,Whole Blood 99 mg/dL (75-99)
[2020-09-21] MEDS ORDERED: SODIUM CHLORIDE 0.9% 1,000 ML IV SCH (03:15)
[2020-09-21] MEDS: SODIUM CHLORIDE 0.9% 500 ML 500 ML IV SCH ×3 (03:23→04:31)
[2020-09-21 03:56] LABS: Albumin 2.8 g/dL (3.5-5.0); Calcium 8.4 mg/dL (8.4-10.2); Magnesium 2.2 mg/dL (1.6-2.3); Total Bilirubin 1.1 mg/dL (0.2-1.3); Total Protein 5.1 g/dL (6.3-8.2)
--- NOTE | 2020-09-21 04:00 | XR ---
EXAM: XR Chest, 1 View CLINICAL HISTORY: ITS.REASON XR Reason: weakness, cough TECHNIQUE: Frontal view of the chest. COMPARISON: 08/27/2019 FINDINGS: Lungs: No consolidation or mass. Pleural space: No acute findings Heart: Unchanged. Bones/joints: No acute findings. IMPRESSION: No acute cardiopulmonary process.
[2020-09-21 04:06] LABS: Appearance,Urine Turbid (Clear); Bacteria,Urine Rare /hpf; Bilirubin,Urine 1+ (Negative); Blood,Urine Trace (Negative); Color,Urine Yellow; Glucose,Urine (UA) Negative (Negative); Hyaline Casts,Urine 31 /lpf (0-2); INR 1.8 (<1.2); Ketones,Urine Negative (Negative); Leukocyte Esterase,Urine Large (Negative); Mucus,Urine Rare /hpf; Nitrite,Urine Negative (Negative); Partial Thromboplastin Time 24.8 sec (22.0-30.0); Protein,Urine 1+ (Negative); Prothrombin Time 17.2 sec (9.0-12.0); RBC,Urine 8 /hpf (0-5); Specific Gravity,Urine 1.025 (1.001-1.035); Squamous Epithelial Cell,Urine 2 /hpf (0-4); Urobilinogen,Urine <2.0 mg/dL (<2.0); WBC,Urine 6 /hpf (0-5)
[2020-09-21 04:09] LABS: D-Dimer 5.54 mg/L FEU (<0.60)
[2020-09-21 04:20] LABS: Potassium 6.4 mmol/L (3.5-5.1)
[2020-09-21] MEDS ORDERED: CALCIUM GLUCONATE 1 GM in SODIUM CHLORIDE 0.9% 100 ML IVPB ONE (04:20)
[2020-09-21] MEDS ORDERED: DEXTROSE 50% SYRINGE 50 ML IVP ONE (04:20)
[2020-09-21] MEDS ORDERED: SODIUM BICARB 8.4% 50 ML SYR (1 MEQ/ML) IV ONE (04:20)
[2020-09-21] MEDS ORDERED: ALBUTEROL NEB (CONC) 2.5 MG/0.5 ML INHALATION ONE (04:20)
[2020-09-21] MEDS ORDERED: INSULIN REGULAR 100 UNIT/ML VIAL IV ONE (04:20)
[2020-09-21] MEDS ORDERED: cefTRIAXone IN SWFI 1,000 MG/10 ML SYRINGE IVP STA (05:28)
[2020-09-21 05:42] LABS: Basophils % (A) 0 %; Eosinophils % (A) 0 %; HCT 41.7 % (34.0-46.0); HGB 12.4 gm/dL (11.4-16.0); Hypochromasia Marked; Lymphocytes # (A) 0.8 k/uL (1.0-4.8); Lymphocytes % (A) 7 %; MCH 30.9 pg (25.0-35.0); MCHC 29.7 g/dL (31.0-37.0); Macrocytosis Moderate; Mean Platelet Volume 7.9; Monocytes # (A) 1.4 k/uL (0-1.0); Monocytes % (A) 12 %; Neutrophils # (A) 9.4 k/uL (1.3-7.7); Neutrophils % (A) 80 %; Platelet Count 171 k/uL (150-450); RBC 4.01 m/uL (3.80-5.40); RDW 15.9 % (11.5-15.5); WBC 11.7 k/uL (3.8-10.6)
[2020-09-21 05:44] VITALS: RESP 18; TEMP 97.5
[2020-09-21] MEDS ORDERED: NOREPINEPHRINE 32 MG in SODIUM CHLORIDE 0.9% 218 ML IV ONE (06:00)
[2020-09-21] MEDS ORDERED: LEVOFLOXACIN 750MG-D5W PMX 750 MG in DEXTROSE/WATER 1 150ML.BAG IVPB STA (06:09)
[2020-09-21] MEDS ORDERED: HYDROCORTISONE SUCCINATE 100 MG/2 ML VIAL IV STA (06:11)
[2020-09-21 06:17] LABS: Albumin 2.2 g/dL (3.5-5.0); Calcium 7.8 mg/dL (8.4-10.2); Potassium 4.6 mmol/L (3.5-5.1); Total Bilirubin 1.2 mg/dL (0.2-1.3); Total Protein 4.2 g/dL (6.3-8.2)
--- NOTE | 2020-09-21 06:21 | XR ---
EXAM: XR Chest, 1 View CLINICAL HISTORY: ITS.REASON XR Reason: central line placement TECHNIQUE: Frontal view of the chest. COMPARISON: 09/21/2020 IMPRESSION: Right central line terminates in the cavoatrial junction.
[2020-09-21] MEDS ORDERED: NALOXONE 0.4 MG/ML 1 ML VIAL IV PRN (06:33)
[2020-09-21 07:07] VITALS: BP 90/57; PULSE 107
[2020-09-21] MEDS ORDERED: EPINEPHrine 10 ML SYRINGE (0.1 MG/ML) ONE (07:13)
[2020-09-21] MEDS ORDERED: SODIUM BICARB 8.4% 50 ML SYR (1 MEQ/ML) ONE (07:13)
[2020-09-21] MEDS ORDERED: CALCIUM CHLORIDE 100 MG/ML 10 ML SYRINGE ONE (07:13)
[2020-09-21] MEDS ORDERED: ROCURONIUM 10 MG/ML (10 ML VIAL) IV ONE (07:19)
[2020-09-21 07:32] LABS: Glucose,Whole Blood 69 mg/dL (75-99)
--- NOTE | 2020-09-21 07:44 | ED ---
Medical Decision Making - Medical Decision Making She reported feeling very hot she did became unresponsive, patient was resuscitated for 35 minutes following ACLS protocol she was intubated and oxygenated Patient remained in PEA throughout the entirety of a code after multiple rounds of epinephrine and continuous CPR decision was made to terminate resuscitation efforts due to lack of response and patient was pronounced at 7:[address] Wilkerson was notified of the patient's , her office will take care of the significant Dr. Osborne was updated Medical Examinor was notified and releases the body - Lab Data Result diagrams: 09/21/20 05:21 09/21/20 05:25 Lab Results 09/21/20 09/21/20 09/21/20 Range/Units 03:07 03:20 03:20 WBC (3.8-10.6) k/uL RBC (3.80-5.40) m/uL Hgb (11.4-16.0) gm/dL Hct (34.0-46.0) % MCV (80.0-100.0) fL MCH (25.0-35.0) pg MCHC (31.0-37.0) g/dL RDW (11.5-15.5) % Plt Count (150-450) k/uL Neutrophils % % Lymphocytes % % Monocytes % % Eosinophils % % Basophils % % Neutrophils # (1.3-7.7) k/uL Lymphocytes # (1.0-4.8) k/uL Monocytes # (0-1.0) k/uL Eosinophils # (0-0.7) k/uL Basophils # (0-0.2) k/uL Hypochromasia Macrocytosis PT 17.2 H (9.0-12.0) sec INR 1.8 H (<1.2) APTT 24.8 (22.0-30.0) sec D-Dimer 5.54 H (<0.60) mg/L FEU Sodium (137-145) mmol/L Potassium (3.5-5.1) mmol/L Chloride (98-107) mmol/L Carbon Dioxide (22-30) mmol/L Anion Gap mmol/L BUN (7-17) mg/dL Creatinine (0.52-1.04) mg/dL Est GFR (CKD-EPI)AfAm (>60 ml/min/1.73 sqM) Est GFR (CKD-EPI)NonAf (>60 ml/min/1.73 sqM) Glucose (74-99) mg/dL POC Glucose (mg/dL) 99 (75-99) mg/dL POC Glu Barrel Assembler ID Flor Oliveros Lactic Ac Sepsis Rflx Plasma Lactic Acid [place] (0.7-2.0) mmol/L Calcium (8.4-10.2) mg/dL Magnesium (1.6-2.3) mg/dL Total Bilirubin (0.2-1.3) mg/dL AST (14-36) U/L ALT (4-34) U/L Alkaline Phosphatase (38-126) U/L Lactate Dehydrogenase (313-618) U/L Troponin I (0.000-0.034) ng/mL C-Reactive Protein (<10.0) mg/L NT-Pro-B Natriuret Pep pg/mL Total Protein (6.3-8.2) g/dL Albumin (3.5-5.0) g/dL Urine Color Yellow Urine Appearance Turbid H (Clear) Urine pH 5.0 (5.0-8.0) Ur Specific [place] 1.025 (1.001-1.035) Urine Protein 1+ H (Negative) Urine Glucose (UA) Negative (Negative) Urine Ketones Negative (Negative) Urine Blood Trace H (Negative) Urine Nitrite Negative (Negative) Urine Bilirubin 1+ H (Negative) Urine Urobilinogen <2.0 (<2.0) mg/dL Ur Leukocyte Esterase Large H (Negative) Urine RBC 8 H (0-5) /hpf Urine WBC 6 H (0-5) /hpf Ur Squamous Epith Cells 2 (0-4) /hpf Urine Bacteria Rare H (None) /hpf Hyaline Casts 31 H (0-2) /lpf Urine Mucus Rare H (None) /hpf 09/21/20 09/21/20 09/21/20 Range/Units 03:20 03:20 03:20 WBC (3.8-10.6) k/uL RBC (3.80-5.40) m/uL Hgb (11.4-16.0) gm/dL Hct (34.0-46.0) % MCV (80.0-100.0) fL MCH (25.0-35.0) pg MCHC (31.0-37.0) g/dL RDW (11.5-15.5) % Plt Count (150-450) k/uL Neutrophils % % Lymphocytes % % Monocytes % % Eosinophils % % Basophils % % Neutrophils # (1.3-7.7) k/uL Lymphocytes # (1.0-4.8) k/uL Monocytes # (0-1.0) k/uL Eosinophils # (0-0.7) k/uL Basophils # (0-0.2) k/uL Hypochromasia Macrocytosis PT (9.0-12.0) sec INR (<1.2) APTT (22.0-30.0) sec D-Dimer (<0.60) mg/L FEU Sodium 135 L (137-145) mmol/L Potassium 6.4 H* (3.5-5.1) mmol/L Chloride 106 (98-107) mmol/L Carbon Dioxide 14 L (22-30) mmol/L Anion Gap 15 mmol/L BUN 26 H (7-17) mg/dL Creatinine 1.84 H (0.52-1.04) mg/dL Est GFR (CKD-EPI)AfAm 33 (>60 ml/min/1.73 sqM) Est GFR (CKD-EPI)NonAf 28 (>60 ml/min/1.73 sqM) Glucose 86 (74-99) mg/dL POC Glucose (mg/dL) (75-99) mg/dL POC Glu Barrel Assembler ID Lactic Ac Sepsis Rflx Plasma Lactic Acid [place] 8.6 H* (0.7-2.0) mmol/L Calcium 8.4 (8.4-10.2) mg/dL Magnesium 2.2 (1.6-2.3) mg/dL Total Bilirubin 1.1 (0.2-1.3) mg/dL AST 443 H (14-36) U/L ALT 213 H (4-34) U/L Alkaline Phosphatase 91 (38-126) U/L Lactate Dehydrogenase 2563 H (313-618) U/L Troponin I (0.000-0.034) ng/mL C-Reactive Protein 46.0 H (<10.0) mg/L NT-Pro-B Natriuret Pep 99361 pg/mL Total Protein 5.1 L (6.3-8.2) g/dL Albumin 2.8 L (3.5-5.0) g/dL Urine Color Urine Appearance (Clear) Urine pH (5.0-8.0) Ur Specific [place] (1.001-1.035) Urine Protein (Negative) Urine Glucose (UA) (Negative) Urine Ketones (Negative) Urine Blood (Negative) Urine Nitrite (Negative) Urine Bilirubin (Negative) Urine Urobilinogen (<2.0) mg/dL Ur Leukocyte Esterase (Negative) Urine RBC (0-5) /hpf Urine WBC (0-5) /hpf Ur Squamous Epith Cells (0-4) /hpf Urine Bacteria (None) /hpf Hyaline Casts (0-2) /lpf Urine Mucus (None) /hpf 09/21/20 09/21/20 09/21/20 Range/Units 04:21 05:21 05:25 WBC 11.7 H (3.8-10.6) k/uL RBC 4.01 (3.80-5.40) m/uL Hgb 12.4 (11.4-16.0) gm/dL Hct 41.7 (34.0-46.0) % MCV 104.0 H D (80.0-100.0) fL MCH 30.9 (25.0-35.0) pg MCHC 29.7 L (31.0-37.0) g/dL RDW 15.9 H (11.5-15.5) % Plt Count 171 (150-450) k/uL Neutrophils % 80 % Lymphocytes % 7 % Monocytes % 12 % Eosinophils % 0 % Basophils % 0 % Neutrophils # 9.4 H (1.3-7.7) k/uL Lymphocytes # 0.8 L (1.0-4.8) k/uL Monocytes # 1.4 H (0-1.0) k/uL Eosinophils # 0.0 (0-0.7) k/uL Basophils # 0.0 (0-0.2) k/uL Hypochromasia Marked Macrocytosis Moderate PT (9.0-12.0) sec INR (<1.2) APTT (22.0-30.0) sec D-Dimer (<0.60) mg/L FEU Sodium 139 (137-145) mmol/L Potassium 4.6 (3.5-5.1) mmol/L Chloride 110 H (98-107) mmol/L Carbon Dioxide 20 L (22-30) mmol/L Anion Gap 9 mmol/L BUN 25 H (7-17) mg/dL Creatinine 1.64 H (0.52-1.04) mg/dL Est GFR (CKD-EPI)AfAm 38 (>60 ml/min/1.73 sqM) Est GFR (CKD-EPI)NonAf 33 (>60 ml/min/1.73 sqM) Glucose 152 H (74-99) mg/dL POC Glucose (mg/dL) (75-99) mg/dL POC Glu Barrel Assembler ID Lactic Ac Sepsis Rflx Y Plasma Lactic Acid [place] (0.7-2.0) mmol/L Calcium 7.8 L (8.4-10.2) mg/dL Magnesium (1.6-2.3) mg/dL Total Bilirubin 1.2 (0.2-1.3) mg/dL AST 678 H (14-36) U/L ALT 316 H (4-34) U/L Alkaline Phosphatase 74 (38-126) U/L Lactate Dehydrogenase (313-618) U/L Troponin I (0.000-0.034) ng/mL C-Reactive Protein (<10.0) mg/L NT-Pro-B Natriuret Pep pg/mL Total Protein 4.2 L (6.3-8.2) g/dL Albumin 2.2 L (3.5-5.0) g/dL Urine Color Urine Appearance (Clear) Urine pH (5.0-8.0) Ur Specific [place] (1.001-1.035) Urine Protein (Negative) Urine Glucose (UA) (Negative) Urine Ketones (Negative) Urine Blood (Negative) Urine Nitrite (Negative) Urine Bilirubin (Negative) Urine Urobilinogen (<2.0) mg/dL Ur Leukocyte Esterase (Negative) Urine RBC (0-5) /hpf Urine WBC (0-5) /hpf Ur Squamous Epith Cells (0-4) /hpf Urine Bacteria (None) /hpf Hyaline Casts (0-2) /lpf Urine Mucus (None) /hpf 09/21/20 09/21/20 Range/Units 05:25 05:25 WBC (3.8-10.6) k/uL RBC (3.80-5.40) m/uL Hgb (11.4-16.0) gm/dL Hct (34.0-46.0) % MCV (80.0-100.0) fL MCH (25.0-35.0) pg MCHC (31.0-37.0) g/dL RDW (11.5-15.5) % Plt Count (150-450) k/uL Neutrophils % % Lymphocytes % % Monocytes % % Eosinophils % % Basophils % % Neutrophils # (1.3-7.7) k/uL Lymphocytes # (1.0-4.8) k/uL Monocytes # (0-1.0) k/uL Eosinophils # (0-0.7) k/uL Basophils # (0-0.2) k/uL Hypochromasia Macrocytosis PT (9.0-12.0) sec INR (<1.2) APTT (22.0-30.0) sec D-Dimer (<0.60) mg/L FEU Sodium (137-145) mmol/L Potassium (3.5-5.1) mmol/L Chloride (98-107) mmol/L Carbon Dioxide (22-30) mmol/L Anion Gap mmol/L BUN (7-17) mg/dL Creatinine (0.52-1.04) mg/dL Est GFR (CKD-EPI)AfAm (>60 ml/min/1.73 sqM) Est GFR (CKD-EPI)NonAf (>60 ml/min/1.73 sqM) Glucose (74-99) mg/dL POC Glucose (mg/dL) (75-99) mg/dL POC Glu Barrel Assembler ID Lactic Ac Sepsis Rflx Plasma Lactic Acid [place] 5.9 H* (0.7-2.0) mmol/L Calcium (8.4-10.2) mg/dL Magnesium (1.6-2.3) mg/dL Total Bilirubin (0.2-1.3) mg/dL AST (14-36) U/L ALT (4-34) U/L Alkaline Phosphatase (38-126) U/L Lactate Dehydrogenase (313-618) U/L Troponin I 0.027 (0.000-0.034) ng/mL C-Reactive Protein (<10.0) mg/L NT-Pro-B Natriuret Pep pg/mL Total Protein (6.3-8.2) g/dL Albumin (3.5-5.0) g/dL Urine Color Urine Appearance (Clear) Urine pH (5.0-8.0) Ur Specific [place] (1.001-1.035) Urine Protein (Negative) Urine Glucose (UA) (Negative) Urine Ketones (Negative) Urine Blood (Negative) Urine Nitrite (Negative) Urine Bilirubin (Negative) Urine Urobilinogen (<2.0) mg/dL Ur Leukocyte Esterase (Negative) Urine RBC (0-5) /hpf Urine WBC (0-5) /hpf Ur Squamous Epith Cells (0-4) /hpf Urine Bacteria (None) /hpf Hyaline Casts (0-2) /lpf Urine Mucus (None) /hpf Critical Care Time Critical Care Time: Yes Total Critical Care Time: 35 Critical Care Time: Critical Care Time 35min - ADDITIONAL FROM PREVIOUS NOTE Critical care time was exclusive of separately billable procedures and treating other patients and teaching time. Critical care was necessary to treat or prevent imminent or life-threatening deterioration. Given the critical condition in which the patient arrived, the patient was imme diately assessed by myself and the nurse, and cardiac monitoring initiated due to the potential for rapid decompensation of the patient's clinical condition. During the course of the patients stay, I spent a considerable amount of time at the bedside performing serial re-evaluations of the patient's hemodynamic and clinical status because of the recognized potential threat to life or limb in this condition. I then had a chance to review not only all of the available current laboratory and radiographic studies obtained today, but I also reviewed old records available to me at the time. Additionally, any ancillary information available including research physiologist records were reviewed. Sequential vital signs were obtained. Disposition Clinical Impression: Multisystem organ failure, Septic shock, COPD (chronic obstructive pulmonary disease), KENZIE (acute kidney injury), Hyperkalemia, Lactic acidosis Disposition: Referrals: Win Mosley MD [Primary Care Provider] - 1-2 days Time of Disposition: 07:33 Preliminary Cause of : Cardiac arrest Procedures - [place] Protocol (Time Out) Procedure Performed:: central line Performing Provider: Josefina Goodrich Nurse: Lesli Oconnell Patient Identification (2 identifiers required): Verbal, Name, Birthdate Patient/Legal Inductor Tester has Confirmed: Identity, Site, Procedure, Consent Site: subclavian Site Marked: No Site Verified With Patient/Guardian: Yes Final Confirmation: Procedure, Site, Laterality, Patient Position, Special Equipment, Confirmed w/Provider - Intubation Paralytic: Rocuronium Laryngoscope: fiber optic video scope Size: 4 Assist Device Used: fiber optic device ET Tube Size: 7.5 ET Tube Uncuffed: No Tube Secured Depth (cm): 24 Tube Secured Location: lips Tube Placement Confirmation: visualized tube passing through cords, equal breath sounds bilaterally, no breath sounds over epigastrium, confirmation by capnometry Patient Tolerated Procedure: well Intubation Complications: none
[2020-09-21] MEDS ORDERED: SODIUM CHLORIDE 0.9% 2,000 ML IV ONE (08:19)
[2020-09-21] MEDS ORDERED: DEXAMETHASONE SOD PHOSPHATE 4 MG/ML 1 ML VIAL IV SCH ×2 (09:00→21:00)
[2020-09-21] MEDS ORDERED: ENOXAPARIN 30 MG/0.3 ML SYRINGE SQ SCH (09:00)
[2020-09-21] MEDS ORDERED: FAMOTIDINE 20 MG/2 ML VIAL IV SCH (09:00)
== END 2020-09-21 10:09 | disposition expired ==
LOC: EC 03:02 → UNDOADMIN 06:33 → 2SICU 06:33 → EC 10:09
DX: Z03.818 Encounter for observation for suspected exposure to other biological agents ruled out (principal); A41.9 Sepsis, unspecified organism; R65.21 Severe sepsis with septic shock; N17.9 Acute kidney failure, unspecified; J44.9 Chronic obstructive pulmonary disease, unspecified; T68.XXXA Hypothermia, initial encounter; R20.0 Anesthesia of skin; E87.5 Hyperkalemia; E87.2 Acidosis; R11.2 Nausea with vomiting, unspecified; E86.0 Dehydration; R79.89 Other specified abnormal findings of blood chemistry; I95.9 Hypotension, unspecified; F17.200 Nicotine dependence, unspecified, uncomplicated; Z79.899 Other long term (current) drug therapy; Z79.51 Long term (current) use of inhaled steroids
CPT/HCPCS: 36415; 94640; 93005; 85379; 83880; 80053; 83605; 83615; 83735; 84484; 85025; 85610; 85730; 86140; 81001; 87040; 84145; 71045; 99291; 99292 ×2; 31500; 36556; 96365; 96367 ×2; 96375 ×5; 96361 ×3; U0003; J1720; J0696; J1956; J0610